=== PATIENT | male | born 1955 | race Caucasian/White ===

== ENCOUNTER → 2016-08-19 | Outpatient (CLI) | payer MEDICARE ==
--- NOTE | 2016-08-19 09:50 | REP ---
Clinical: Palpable mass; possible ventral hernia. Technique: Real time flores scale and color evaluation using linear high frequency and curved array transducer. Findings: Directed ultrasound examination in the midline periumbilical region demonstrates a 8.0 x 7.5 x 4.9 cm fat containing supraumbilical hernia with the peritoneal defect measuring approximately 32 mm diameter by Valsalva. Impression: 8 cm fat containing ventral hernia above the umbilicus. Signed by Bowen Tan MD 08/19/2016 09:42 A
== END ==
LOC: M RAD 08:32
PROVIDERS: ATTEND Nurse Practitioner Family
DX: K42.9 Umbilical hernia without obstruction or gangrene (principal)

== ENCOUNTER → 2016-10-07 | Outpatient (REF) | payer MEDICARE ==
[2016-10-07 13:57] LABS: ALBUMIN 3.4 GM/DL (3.2-5.2); ALBUMIN/GLOBULIN RATIO 1.03 (1.00-1.93); ALKALINE PHOSPHATASE 80 U/L (45-117); ALT/SGPT 24 U/L (12-78); ANION GAP 6 MEQ/L (8-16); AST/SGOT 15 U/L (15-37); BILIRUBIN,TOTAL 0.6 MG/DL (0.2-1.0); BLOOD UREA NITROGEN 28 MG/DL (7-18); CALCIUM LEVEL 9.2 MG/DL (8.5-10.1); CARBON DIOXIDE LEVEL 26 MEQ/L (21-32); CHLORIDE LEVEL 107 MEQ/L (98-107); CHOLESTEROL LEVEL 135 MG/DL (<200); CREATININE FOR GFR 1.12 MG/DL (0.70-1.30); GLOMERULAR FILTRATION RATE > 60.0 (>56); GLUCOSE, FASTING 166 MG/DL (70-105); POTASSIUM SERUM 4.4 MEQ/L (3.5-5.1); SODIUM LEVEL 139 MEQ/L (136-145); TOTAL PROTEIN 6.7 GM/DL (6.4-8.2); TRIGLYCERIDES LEVEL 256 MG/DL (<150)
== END ==
LOC: M LAB REF 12:57
PROVIDERS: ATTEND Nurse Practitioner Family
DX: E78.5 Hyperlipidemia, unspecified (principal); E55.9 Vitamin D deficiency, unspecified; E11.9 Type 2 diabetes mellitus without complications

== ENCOUNTER 2016-11-08 08:15 | Day surgery (SDC) | payer MEDICARE ==
[~2016-11-08] VITALS: Ht 172.7 cm; Wt 137.4 kg
[2016-11-08] VITALS (7 sets, daily range): BP systolic 122–138; BP diastolic 64–82
[~2016-11-08 08:15] MED LIST: ASPI1TAB PO; ATOR1TAB21 PO; DULO1CAP2 PO; GABA-282 PO; GLIP5TAB8 PO; INVO100T PO; ISOS60TA2 PO; LISI20TA3 PO; LR 1,000 ML IV SCH; METF10004 PO; METO25TA4 PO; PLAV1TAB2 PO; PREV1CAP PO; RANO5TAB PO; TOUJ1.2I SC
[2016-11-08] MEDS ORDERED: LR 1,000 ML IV ONE (09:00)
[2016-11-08] MEDS ORDERED: dexameTHASONE 4 MG/ML 1ML VIAL (J1100) As Ordered ONE (09:11)
[2016-11-08] MEDS ORDERED: ROCURONIUM BROMIDE 50 MG/5 ML VIAL/SYRINGE As Ordered ONE (09:11)
[2016-11-08] MEDS ORDERED: NEOSTIGMINE 1MG/ML 5 ML SYRINGE (J2710) As Ordered ONE (09:11)
[2016-11-08] MEDS ORDERED: PROPOFOL 200 MG/20 ML VIAL As Ordered ONE (09:11)
[2016-11-08] MEDS ORDERED: HYDROmorphone HCL 2 MG/ML 1ML VIAL (J1170) As Ordered ONE (09:11)
[2016-11-08] MEDS ORDERED: GLYCOPYRROLATE INJ 0.2 MG/ML 2 ML VIAL As Ordered ONE (09:11)
[2016-11-08] MEDS ORDERED: ONDANSETRON 4MG/2ML VIAL (J2405) As Ordered ONE (09:11)
[2016-11-08] MEDS ORDERED: fentaNYL 100 MCG/2 ML INJECTION (J3010) As Ordered ONE (09:12)
[2016-11-08] MEDS ORDERED: MIDAZOLAM INJ 2 MG/2 ML VIAL (J2250) As Ordered ONE (09:12)
[2016-11-08] MEDS ORDERED: LIDOCAINE 2% INJ 100 MG/5 ML SDV (FOR ANES.) As Ordered ONE (09:15)
[2016-11-08] MEDS ORDERED: BUPIVACAINE HCL 0.25% 30 ML VIAL As Ordered ONE (10:50)
[2016-11-08] MEDS ORDERED: LIDOCAINE 1% SDV INJ 30 ML VIAL As Ordered ONE (10:50)
[2016-11-08] MEDS ORDERED: SUGAMMADEX SODIUM 500 MG/5 ML VIAL (BRIDION) As Ordered ONE (13:29)
--- NOTE | 2016-11-08 14:04 | ROOPDOC ---
[facility] Report Of Operation Report of Operation DATE OF PROCEDURE: 11/08/16 PREPROCEDURE DIAGNOSES: epigastric ventral hernia morbid obesity bm1 of 47 POSTPROCEDURE DIAGNOSES: epigastric ventral hernia with incarcerated omentum morbid obesity PROCEDURE: Robotic Assisted Laparoscopic Ventral hernia Repair with mesh (IPOM 11.4 cm round mesh) SURGEON: Raiza Bailey MD CIGARETTE MACHINE FILLER: Jossy Mckoy NP ANESTHESIA:general ESTIMATED BLOOD LOSS: Approximately 20 mL. COMPLICATIONS: none REMARKS: 4x4 cms hernia defect, large midline diastases of his rectus muscles. PROCEDURE NOTE: 61 M morbidly obese with symptomatic epigastric ventral hernia DESCRIPTION OF PROCEDURE: Patient was given a dose of Ancef, 2 g IV preoperatively for wound prophylaxis. He was brought to the operating room and laid supine table, compression boots placed on his lower extremities were DVT prophylaxis. General endotracheal anesthesia was started. His abdomen was widely prepped and draped. A surgical timeout was performed prior to start of incision. Entry into the abdomen done through an incision at the left upper quadrant area. Veress needle was inserted on a controlled fashion. CO2 insufflation started her pressure of 15 mmHg. A separate 2 cm incision created more laterally at the left upper quadrant area. Under direct visualization of the laparoscope a 12 mm port was inserted into the abdomen. Insertion site was inspected for injury and none was found. Patient was placed on the right lateral decubitus to move the intestine away from the left side. Under direct vision, a second working port was placed along the same line at the left lower abdomen and in between the 2 ports an 8 mm camera port was placed. The da Huyen robot, was then maneuvered into position opposite the hernia defect. The trochars were docked to the robot arms. The 8 mm trocar over the left upper quadrant area was placed through the 12 mm working port. We used an 8.5 mm 30 laparoscope was used for the procedure. I then unscrubbed and took control of the camera and instruments at the surgeon's console. The incarcerated omentum was dissected away from the hernia. Patient has a very attenuated falciform ligament. After freeing up all the omental adhesions the hernia sac was dissected free from the subcutaneous tissue and preperitoneal space with the aid of my assistant chief train dispatcher pushing down on the hernia defect. Hemostasis was performed. The fascia was released from the surrounding subcutaneous space in the preperitoneal area to release tension and allow for closure of the defect. A 0 Stratafix (PDS, barbed suture) was used to close the defect. There were able to do so the abdominal pressure was lowered to 10 mmHg. I chose an 11.4 cm round ventral polypropylene mesh with echo. This was rolled tightly and placed into the abdomen. The tubing to inflate the balloon was retrieved at the center of the fascial closure. Once the balloon was inflated and the mesh positioned in place, the mesh was sutured circumferentially into the abdominal wall using a 2-0 Stratafix (monocryl equivalent, barbed). The mesh was adequately covering the fascial closure. We checked for hemostasis. The abdomen was then deflated I scrubbed back then. The 12 mm port site was closed using 0 Vicryl in a mattress fashion. All incision sites were closed with 4-0 Monocryl in a subcuticular fashion. Dermabond was then used for dressing. Patient was then promptly awakened, extubated and brought to the recovery room stable. OPERATIVE FINDINGS: 4 x 4 cms defect with incarcerated omentum released. Hernia sac removed. A 11.4 cm round ventralyte polypropylene mesh was sutured in place after primary closure of the midline defect as IPOM. GT BAILEY MD Nov 08, 2016 14:04
[2016-11-08] MEDS ORDERED: DEXTROSE 50% 50 ML SYRINGE IV PRN (14:15)
[2016-11-08] MEDS ORDERED: KETOROLAC 30 MG/ML VIAL (J1885) IV PRN (14:15)
[2016-11-08] MEDS ORDERED: ONDANSETRON 4MG/2ML VIAL (J2405) IV PRN ×2 (14:15→14:45)
[2016-11-08] MEDS ORDERED: GLUCAGON FOR INJ 1 MG VIAL (J1610) SC PRN (14:15)
[2016-11-08] MEDS ORDERED: ACETAMINOPHEN TAB 650MG DOSE (2X325MG) PO PRN (14:15)
[2016-11-08] MEDS ORDERED: GLUCOSE 4 GM CHEW TABLET PO PRN (14:15)
[2016-11-08] MEDS ORDERED: NORCO, ANEXSIA 5/325MG TABLET (HYDROcodone/ACETAMINOPHEN) PO PRN (14:15)
[2016-11-08] MEDS ORDERED: LR 1,000 ML IV SCH (14:45)
[2016-11-08] MEDS ORDERED: fentaNYL 100 MCG/2 ML INJECTION (J3010) IV PRN (14:45)
[2016-11-08] MEDS: NORCO, ANEXSIA 5/325MG TABLET (HYDROcodone/ACETAMINOPHEN) PO PRN ×2 (14:46→19:51)
[2016-11-08] MEDS: GABAPENTIN 300 MG CAP PO SCH ×2 (16:35→20:42)
[2016-11-08] MEDS: DULoxetine 30 MG CAP (CYMBALTA) PO SCH (16:35)
[2016-11-08] MEDS: HumaLOG INSULIN (NovoLOG) PER UNIT SC SCH (17:13)
[2016-11-08] MEDS: hydroCHLOROthiazide 12.5 MG CAPSULE PO SCH (17:20)
[2016-11-08] MEDS: LISINOPRIL 10 MG TAB PO SCH (17:22)
[2016-11-08] MEDS: METOPROLOL TART 25 MG TABLET PO SCH (20:44)
[2016-11-08] MEDS: SENOKOT S TAB PO SCH (20:45)
[2016-11-08] MEDS ORDERED: HumaLOG INSULIN (NovoLOG) PER UNIT SC SCH (21:00)
[2016-11-09] VITALS: BP 111/64
[2016-11-09 04:00] VITALS: BP 116/62
[2016-11-09 06:32] LABS: BASO % 0.2 % (0.0-1.0); EOS # 0.1 K/mm3 (0.0-0.50); EOS % 0.6 % (0.0-3.0); LARGE UNSTAINED CELL # 0.1 K/mm3 (0.0-0.4); LYMPH # 1.7 K/mm3 (1.5-4.5); LYMPH % 15.1 % (24.0-44.0); MEAN CORPUSCULAR HEMOGLOBIN 31.6 pg (27.0-33.0); MEAN CORPUSCULAR HGB CONC 34.3 g/dl (32.0-36.5); MEAN CORPUSCULAR VOLUME 92.2 fl (80.0-96.0); MONO # 0.7 K/mm3 (0.0-0.8); MONO % 7.2 % (0.0-5.0); NEUTROPHILS # 7.8 K/mm3 (1.8-7.7); NEUTROPHILS % 75.9 % (36.0-66.0); PLATELET COUNT, AUTOMATED 231 k/mm3 (150-450); RED CELL DISTRIBUTION WIDTH 13.8 % (11.5-14.5); WHITE BLOOD COUNT 10.3 K/mm3 (4.0-10.0)
[2016-11-09 06:57] LABS: ANION GAP 6 MEQ/L (8-16); BLOOD UREA NITROGEN 27 MG/DL (7-18); CARBON DIOXIDE LEVEL 29 MEQ/L (21-32); CHLORIDE LEVEL 98 MEQ/L (98-107); CREATININE FOR GFR 1.24 MG/DL (0.70-1.30); GLOMERULAR FILTRATION RATE > 60.0 (>49); GLUCOSE, FASTING 222 MG/DL (80-110); POTASSIUM SERUM 4.4 MEQ/L (3.5-5.1); SODIUM LEVEL 133 MEQ/L (136-145)
[2016-11-09 08:00] VITALS: BP 131/72
[2016-11-09] MEDS: HumaLOG INSULIN (NovoLOG) PER UNIT SC SCH (08:37)
[2016-11-09] MEDS: GABAPENTIN 300 MG CAP PO SCH (08:38)
[2016-11-09] MEDS: DULoxetine 30 MG CAP (CYMBALTA) PO SCH (08:38)
[2016-11-09] MEDS: SENOKOT S TAB PO SCH (08:38)
[2016-11-09] MEDS: hydroCHLOROthiazide 12.5 MG CAPSULE PO SCH (08:39)
[2016-11-09 08:40] VITALS: BP 116/62
[2016-11-09] MEDS: METOPROLOL TART 25 MG TABLET PO SCH (08:40)
[2016-11-09] MEDS: LISINOPRIL 10 MG TAB PO SCH (08:40)
[2016-11-09] MEDS ORDERED: ATORVASTATIN 20 MG TAB PO SCH (09:00)
[2016-11-09] MEDS ORDERED: ASPIRIN 81 MG ENTERIC TAB PO SCH (09:00)
[2016-11-09] MEDS ORDERED: ENOXAPARIN 40 MG/0.4 ML SYRINGE (J1650) SC SCH (09:00)
--- NOTE | 2016-11-09 09:10 | IPNPDOC ---
Subjective General Date/Time Seen The patient was seen on 11/09/16 at 09:07. Subject Chief Complaint/History The patient is a 61-year-old male admitted with a reason for visit of Ventral Hernia. Reports he is doing well. Pain minimal, ambulating, minimal flatus. Tolerating diet. No problems reported overnight. Current Medications Current Medications Current Medications Acetaminophen (Tylenol Tab) 650 mg Q4HP PRN PO MILD PAIN or TEMP > 101; Start 11/08/16 at 14:15; Stop 12/08/16 at 14:14 Acetaminophen/ Hydrocodone Bitart (Melber, Anexsia 5/325) 1 tab Q4HP PRN PO MODERATE PAIN (PS 5-7) Last administered on 11/08/16 19:51; Start 11/08/16 at 14:15; Stop 11/15/16 at 14:14 Acetaminophen/ Hydrocodone Bitart (Melber, Anexsia 5/325) 2 tab Q6HP PRN PO SEVERE PAIN (PS 8-10); Start 11/08/16 at 14:15; Stop 11/15/16 at 14:14 Aspirin (Ecotrin) 81 mg DAILY PO Last administered on 11/09/16 08:38; Start at 09:00; Stop 12/09/16 at 08:59 Atorvastatin Calcium (Lipitor) 20 mg DAILY PO Last administered on 11/09/16 08 :39; Start 11/09/16 at 09:00; Stop 12/09/16 at 08:59 Dextrose (Dextrose 50%) 25 ml ASDIRECTED PRN IV SEE LABEL COMMENTS; Start 11/08 at 14:15; Stop 12/08/16 at 14:14 Duloxetine HCl (Cymbalta) 30 mg DAILY PO Last administered on 11/09/16 08:38; Start 11/08/16 at 09:00; Stop 12/08/16 at 08:59 Enoxaparin Sodium (Lovenox) 40 mg DAILY SC Last administered on 11/09/16 08:39 ; Start 11/09/16 at 09:00; Stop 11/14/16 at 08:59 Fentanyl Citrate (Sublimaze) 25 mcg Q5MP PRN IV MODERATE PAIN (PS 4-7) Last administered on 11/08/16 14:45; Start 11/08/16 at 14:45; Stop 11/08/16 at 15:45 ; Status DC Gabapentin (Neurontin) 600 mg TID PO Last administered on 11/09/16 08:38; Start 11/08/16 at 16:00; Stop 12/08/16 at 15:59 Glucagon (Glucagon) 1 mg ASDIRECTED PRN SC SEE LABEL COMMENTS; Start 11/08/16 at 14:15; Stop 12/08/16 at 14:14 Glucose (Glucose) 16 GM ASDIRECTED PRN PO SEE LABEL COMMENTS; Start 11/08/16 at 14:15; Stop 12/08/16 at 14:14 Hydrochlorothiazide (Hydrodiuril) 12.5 mg DAILY PO Last administered on 08:39; Start 11/08/16 at 09:00; Stop 12/08/16 at 08:59 Insulin Human Lispro (HumaLOG INSULIN) SEE PROTOCOL TABLE AC SC Last administered on 11/09/16 08:37; Start 11/08/16 at 17:30; Stop 12/08/16 at 17:29 Insulin Human Lispro (HumaLOG INSULIN) SEE PROTOCOL TABLE QHS SC Last administered on 11/08/16 20:50; Start 11/08/16 at 21:00; Stop 12/08/16 at 20:59 Ketorolac Tromethamine (ToRADol) 30 mg Q6HP PRN IV MILD/MODERATE PAIN (PS 1-7) Last administered on 11/08/16 14:47; Start 11/08/16 at 14:15; Stop 11/13/16 at 14:14 Lactated Ringer's 1,000 ml @ 80 mls/hr [id number] IV ; Start 11/08/16 at 14:45; Stop 11/08/16 at 15:45; Status DC Lactated Ringer's 1,000 ml @ 100 mls/hr Q10H IV Last administered on 09:24; Start 11/08/16 at 08:15; Stop 11/08/16 at 14:17; Status DC Lisinopril (Prinivil) 10 mg DAILY PO Last administered on 11/09/16 08:40; Start 11/08/16 at 09:00; Stop 12/08/16 at 08:59 Metoprolol Tartrate (Lopressor) 25 mg BID PO Last administered on 11/09/16 08: 40; Start 11/08/16 at 21:00; Stop 12/08/16 at 20:59 Ondansetron HCl (ZOFRAN INJection) 4 mg Q4HP PRN IV NAUSEA OR VOMITING; Start 11/08/16 at 14:45; Stop 11/08/16 at 15:45; Status DC Ondansetron HCl (ZOFRAN INJection) 4 mg Q6HP PRN IV NAUSEA OR VOMITING; Start 11/08/16 at 14:15; Stop 12/08/16 at 14:14 Senna/Docusate Sodium (Senokot S) 1 tab BID PO Last administered on 11/09/16 08:38; Start 11/08/16 at 21:00; Stop 12/08/16 at 20:59 Allergies Coded Allergies: No Known Drug Allergy (Verified Allergy, Unknown, 11/08/16) Objective Physical Examination Examination GENERAL APPEARANCE:Patient seen, laying in bed, awake, alert, and oriented. Comfortable, in no acute distress. SKIN: Warm and moist. HEENT: Normocephalic, atraumatic. [place] palpebral conjunctiva, anicteric sclerae. Lips and mucosa appear moist. NECK: Supple, no thyromegaly. No obvious jugular venous distention. LUNGS: Clear to auscultation bilaterally. No wheezing appreciated. HEART: No chest wall abnormalities. Regular rate and rhythm with no murmurs appreciated. ABDOMEN: Abdomen is round, soft, minimally distended. port sites covered with dermabond, intact, clean. No hematoma, no seroma. hernia repair site minimally tender, no seroma.. EXTREMITIES: Extremities have no deformities. No edema identified. Vital Signs Vital Signs Date Time Temp Pulse Resp B/P (MAP) Pulse Ox O2 Delivery O2 Flow Rate FiO2 11/09/16 08:40 116/62 11/09/16 04:00 99.2 69 18 94 11/09/16 04:00 Nasal Cannula 2.0 I&Os I&O- Last 24 Hours up to 6 AM 11/09/16 05:59 Intake Total 3590 ml Output Total 1225 ml Balance 2365 ml Laboratory Data Labs 24H Laboratory Tests 2 11/08/16 14:28: Bedside Glucose (Misc Panel) 172H 11/08/16 16:37: Bedside Glucose (Misc Panel) 207H 11/08/16 20:40: Bedside Glucose (Misc Panel) 325H 11/09/16 05:44: White Blood Count 10.3H, Red Blood Count 4.93, Hemoglobin 15.6, Hematocrit 45.5 , Mean Corpuscular Volume 92.2, Mean Corpuscular Hemoglobin 31.6, Mean Corpuscular Hemoglobin Concent 34.3, Red Cell Distribution Width 13.8, Platelet Count 231, Neutrophils (%) (Auto) 75.9H, Lymphocytes (%) (Auto) 15.1L, Monocytes (%) (Auto) 7.2H, Eosinophils (%) (Auto) 0.6, Basophils (%) (Auto) 0.2 , Neutrophils # (Auto) 7.8H, Lymphocytes # (Auto) 1.7, Monocytes # (Auto) 0.7, Eosinophils # (Auto) 0.1, Basophils # (Auto) 0.0, Large Unclassified Cells % 1.0 , Large Unclassified Cells # 0.1, Anion Gap 6L, Glomerular Filtration Rate > 60.0, Blood Urea Nitrogen 27H, Creatinine 1.24, Sodium Level 133L, Potassium Level 4.4, Chloride Level 98, Carbon Dioxide Level 29, Calcium Level 9.0 CBC/BMP Laboratory Tests 11/09/16 05:44 Red Blood Count 4.93, Mean Corpuscular Volume 92.2, Mean Corpuscular Hemoglobin 31.6, Mean Corpuscular Hemoglobin Concent 34.3, Red Cell Distribution Width 13.8 , Neutrophils (%) (Auto) 75.9 H, Lymphocytes (%) (Auto) 15.1 L, Monocytes (%) ( Auto) 7.2 H, Eosinophils (%) (Auto) 0.6, Basophils (%) (Auto) 0.2, Neutrophils # (Auto) 7.8 H, Lymphocytes # (Auto) 1.7, Monocytes # (Auto) 0.7, Eosinophils # (Auto) 0.1, Basophils # (Auto) 0.0, Calcium Level 9.0 Impression POD1 Robotically assisted laparoscopic ventral (epigastric) hernia repair Stable. OK to D/C home. Patient has previous been given his postop norco from clinic. Follow up with me in 2 weeks. Plan / VTE VTE Prophylaxis Ordered?: Yes GT SCOTT MD Nov 09, 2016 09:10
== END 2016-11-09 10:45 | disposition home or self-care (01) ==
LOC: M SDC 08:15 → M PED 15:14 → M SDC 11-09 10:45
PROVIDERS: ATTEND Surgery
DX: K43.0 Incisional hernia with obstruction, without gangrene (principal); I10 Essential (primary) hypertension; E11.9 Type 2 diabetes mellitus without complications; I25.10 Atherosclerotic heart disease of native coronary artery without angina pectoris; E78.5 Hyperlipidemia, unspecified; E66.01 Morbid (severe) obesity due to excess calories; K21.9 Gastro-esophageal reflux disease without esophagitis; R06.02 Shortness of breath; R07.9 Chest pain, unspecified; R29.898 Other symptoms and signs involving the musculoskeletal system; R06.83 Snoring; G47.30 Sleep apnea, unspecified; Z79.899 Other long term (current) drug therapy; Z79.01 Long term (current) use of anticoagulants; Z79.82 Long term (current) use of aspirin; Z79.84 Long term (current) use of oral hypoglycemic drugs; Z79.4 Long term (current) use of insulin; Z87.891 Personal history of nicotine dependence; Z87.81 Personal history of (healed) traumatic fracture; Z95.5 Presence of coronary angioplasty implant and graft
CPT/HCPCS: 36415; 49653; 80048; 85025; 88302; C1781; J0690; J1170; J1650; J1885; J2250; J2405; J3010

== ENCOUNTER → 2017-01-07 | Outpatient (REF) | payer MEDICARE ==
[~2017-01-07] MED LIST changes: -LR 1,000 ML IV SCH
[2017-01-07 15:49] LABS: ANION GAP 13 MEQ/L (8-16); BLOOD UREA NITROGEN 24 MG/DL (7-18); CALCIUM LEVEL 9.3 MG/DL (8.8-10.2); CARBON DIOXIDE LEVEL 23 MEQ/L (21-32); CHLORIDE LEVEL 104 MEQ/L (98-107); CHOLESTEROL LEVEL 141 MG/DL (<200); CREATININE FOR GFR 1.03 MG/DL (0.70-1.30); GLOMERULAR FILTRATION RATE > 60.0 (>49); GLUCOSE, FASTING 208 MG/DL (80-110); POTASSIUM SERUM 4.3 MEQ/L (3.5-5.1); SODIUM LEVEL 140 MEQ/L (136-145); TRIGLYCERIDES LEVEL 196 MG/DL (<150)
== END ==
LOC: M LAB REF 13:21
PROVIDERS: ATTEND Nurse Practitioner Family
DX: E55.9 Vitamin D deficiency, unspecified (principal); E11.9 Type 2 diabetes mellitus without complications

== ENCOUNTER → 2017-04-08 | Outpatient (REF) | payer MEDICARE ==
[2017-04-08 16:27] LABS: ANION GAP 7 MEQ/L (8-16); BLOOD UREA NITROGEN 23 MG/DL (7-18); CALCIUM LEVEL 9.4 MG/DL (8.8-10.2); CARBON DIOXIDE LEVEL 28 MEQ/L (21-32); CHLORIDE LEVEL 104 MEQ/L (98-107); CREATININE FOR GFR 1.19 MG/DL (0.70-1.30); GLOMERULAR FILTRATION RATE > 60.0 (>49); GLUCOSE, FASTING 261 MG/DL (80-110); POTASSIUM SERUM 4.6 MEQ/L (3.5-5.1); SODIUM LEVEL 139 MEQ/L (136-145)
== END ==
LOC: M LAB REF 15:55
PROVIDERS: ATTEND Nurse Practitioner Family
DX: Z12.5 Encounter for screening for malignant neoplasm of prostate (principal); E11.9 Type 2 diabetes mellitus without complications
CPT/HCPCS: 80048; 83036; G0103

== ENCOUNTER → 2017-07-10 | Outpatient (REF) | payer MEDICARE ==
[2017-07-10 13:32] LABS: MALB URINE SIEMENS 41.5 MG/L
[2017-07-10 13:58] LABS: ESTIMATED AVERAGE GLUCOSE 171 MG/DL (60-110); HEMOGLOBIN A1c 7.6 %
== END ==
LOC: M LAB REF 12:11
DX: E10.9 Type 1 diabetes mellitus without complications (principal)
CPT/HCPCS: 83036

== ENCOUNTER → 2017-10-09 | Outpatient (CLI) | payer MEDICARE ==
[~2017-10-09] MED LIST changes: -ASPI1TAB PO; -ATOR1TAB21 PO; -DULO1CAP2 PO; -GABA-282 PO; +GASTROGRAFIN SOLUTION 30ML (Q9963) As Ordered; -GLIP5TAB8 PO; -INVO100T PO; -ISOS60TA2 PO; +ISOVUE-370 76% 100ML VIAL (Q9967) As Ordered; -LISI20TA3 PO; -METF10004 PO; -METO25TA4 PO; -PLAV1TAB2 PO; -PREV1CAP PO; -RANO5TAB PO; -TOUJ1.2I SC
[2017-10-09 16:50] LABS: CREATININE FOR GFR 1.23 MG/DL (0.70-1.30); GLOMERULAR FILTRATION RATE > 60.0 (>49)
[2017-10-09 16:50] LABS: BLOOD UREA NITROGEN 25 MG/DL (7-18)
== END ==
LOC: M RAD 15:54
DX: K43.9 Ventral hernia without obstruction or gangrene (principal)
CPT/HCPCS: Q9963

== ENCOUNTER 2017-10-13 20:04 | Emergency (ER) | payer MEDICARE ==
[2017-10-13 20:53] LABS: KETONE, URINE AUTO RFX NEGATIVE (NEGATIVE); NITRITE, URINE AUTO RFX NEGATIVE (NEGATIVE); RBC, URINE AUTO RFX 5 /HPF (0-3); SPECIFIC GRAVITY UR AUTO RFX 1.021 (1.002-1.035); SQUAM EPITHELIAL CELL UR AURFX 0 /HPF (0-6); WBC, URINE AUTO RFX 5 /HPF (0-3)
[2017-10-13 20:54] LABS: LEUKOCYTE ESTERASE UR AUTO RFX 2+ (NEGATIVE)
[2017-10-13] MEDS: CIPROFLOXACIN 500 MG TAB PO (23:15)
== END 2017-10-13 23:24 | disposition home or self-care (01) ==
LOC: M ED 20:04
DX: N30.00 Acute cystitis without hematuria (principal); N47.6 Balanoposthitis; I10 Essential (primary) hypertension; K21.9 Gastro-esophageal reflux disease without esophagitis; I25.2 Old myocardial infarction; Z95.5 Presence of coronary angioplasty implant and graft; Z87.891 Personal history of nicotine dependence; Z79.899 Other long term (current) drug therapy; Z79.01 Long term (current) use of anticoagulants; Z79.82 Long term (current) use of aspirin; Z79.4 Long term (current) use of insulin
CPT/HCPCS: 81001

== ENCOUNTER → 2017-10-21 | Outpatient (REF) | payer MEDICARE ==
[2017-10-21 13:50] LABS: ESTIMATED AVERAGE GLUCOSE 220 MG/DL (60-110); HEMOGLOBIN A1c 9.3 %
== END ==
LOC: M LAB REF 12:46
DX: E11.9 Type 2 diabetes mellitus without complications (principal)
CPT/HCPCS: 83036

== ENCOUNTER → 2017-10-23 | Outpatient (REF) | payer MEDICARE ==
[2017-10-23 14:11] LABS: APPEARANCE, URINE CLEAR (CLEAR); BACTERIA, URINE AUTO NEGATIVE (NEGATIVE); BILIRUBIN, URINE AUTO NEGATIVE (NEGATIVE); BLOOD, URINE BLOOD NEGATIVE (NEGATIVE); COLOR, URINE YELLOW (YELLOW); GLUCOSE, URINE (UA) AUTO 3+ mg/dL (NEGATIVE); KETONE, URINE AUTO NEGATIVE (NEGATIVE); LEUKOCYTE ESTERASE, URINE AUTO 1+ (NEGATIVE); NITRITE, URINE AUTO NEGATIVE (NEGATIVE); PROTEIN, URINE AUTO NEGATIVE (NEGATIVE); RBC, URINE AUTO 3 /HPF (0-3); SPECIFIC GRAVITY URINE AUTO 1.029 (1.002-1.035); SQUAMOUS EPITHELIAL CELL UR AU 0 /HPF (0-6); UROBILINOGEN, URINE AUTO 0.2 mg/dL (0.0-2.0); WBC, URINE AUTO 2 /HPF (0-3)
== END ==
LOC: M SMT 12:54
DX: R31.29 Other microscopic hematuria (principal)
CPT/HCPCS: 81001

== ENCOUNTER → 2017-11-20 | Outpatient (CLI) | payer MEDICARE ==
[2017-11-20 11:16] LABS: BASO # 0.1 10^3/uL (0.0-0.2); BASO % 0.6 % (0.0-1.0); EOS # 0.2 10^3/uL (0.0-0.50); EOS % 1.8 % (0.0-3.0); HEMOGLOBIN 16.9 g/dl (13.5-17.5); IMMATURE GRANULOCYTE % 0.7 % (0-3.0); LYMPH # 2.3 10^3/uL (1.5-4.5); LYMPH % 27.8 % (24.0-44.0); MEAN CORPUSCULAR HEMOGLOBIN 31.7 pg (27.0-33.0); MEAN CORPUSCULAR HGB CONC 35.2 g/dl (32.0-36.5); MEAN CORPUSCULAR VOLUME 90.1 fl (80.0-96.0); MONO # 0.6 10^3/uL (0.0-0.8); MONO % 7.8 % (0.0-5.0); NEUTROPHILS % 61.3 % (36.0-66.0); PLATELET COUNT, AUTOMATED 264 10^3/uL (150-450); RED BLOOD COUNT 5.33 10^6/uL (4.30-6.10); RED CELL DISTRIBUTION WIDTH 12.7 % (11.5-14.5); WHITE BLOOD COUNT 8.2 10^3/uL (4.0-10.0)
[2017-11-20 11:20] LABS: APPEARANCE, URINE CLEAR (CLEAR); BACTERIA, URINE AUTO NEGATIVE (NEGATIVE); BILIRUBIN, URINE AUTO NEGATIVE (NEGATIVE); BLOOD, URINE BLOOD NEGATIVE (NEGATIVE); COLOR, URINE YELLOW (YELLOW); GLUCOSE, URINE (UA) AUTO 3+ mg/dL (NEGATIVE); KETONE, URINE AUTO NEGATIVE (NEGATIVE); LEUKOCYTE ESTERASE, URINE AUTO TRACE (NEGATIVE); NITRITE, URINE AUTO NEGATIVE (NEGATIVE); PROTEIN, URINE AUTO NEGATIVE (NEGATIVE); RBC, URINE AUTO 2 /HPF (0-3); SPECIFIC GRAVITY URINE AUTO 1.026 (1.002-1.035); SQUAMOUS EPITHELIAL CELL UR AU 1 /HPF (0-6); UROBILINOGEN, URINE AUTO 0.2 mg/dL (0.0-2.0); WBC, URINE AUTO 1 /HPF (0-3)
[2017-11-20 11:27] LABS: INR 1.01; PROTHROMBIN TIME 13.4 SECONDS (12.1-14.4)
[2017-11-20 11:28] LABS: PARTIAL THROMBOPLASTIN TIME 28.1 SECONDS (25.4-37.6)
[2017-11-20 12:03] LABS: ALBUMIN/GLOBULIN RATIO 1.25 (1.00-1.93); ALKALINE PHOSPHATASE 105 U/L (45-117); ALT/SGPT 29 U/L (12-78); ANION GAP 12 MEQ/L (8-16); AST/SGOT 12 U/L (7-37); BLOOD UREA NITROGEN 25 MG/DL (7-18); CALCIUM LEVEL 9.5 MG/DL (8.8-10.2); CARBON DIOXIDE LEVEL 23 MEQ/L (21-32); CHLORIDE LEVEL 104 MEQ/L (98-107); CREATININE FOR GFR 1.27 MG/DL (0.70-1.30); GLOMERULAR FILTRATION RATE > 60.0 (>49); GLUCOSE, FASTING 242 MG/DL (70-100); POTASSIUM SERUM 4.9 MEQ/L (3.5-5.1); SODIUM LEVEL 139 MEQ/L (136-145); TOTAL PROTEIN 7.2 GM/DL (6.4-8.2)
== END ==
LOC: M LAB 10:22
DX: Z01.818 Encounter for other preprocedural examination (principal); N47.1 Phimosis; Z79.01 Long term (current) use of anticoagulants; Z79.899 Other long term (current) drug therapy
CPT/HCPCS: 71046

== ENCOUNTER 2017-12-05 07:59 | Emergency (ER) | payer MEDICARE ==
[2017-12-05] MEDS: NS 1,000 ML IV (08:46)
[2017-12-05] MEDS: HumuLIN R (REGULAR) INSULIN (NovoLIN R) **100U/ML** PER UNIT IV (08:47)
[2017-12-05 08:55] LABS: BASO # 0.1 10^3/uL (0.0-0.2); BASO % 0.7 % (0.0-1.0); EOS # 0.2 10^3/uL (0.0-0.50); EOS % 2.2 % (0.0-3.0); HEMOGLOBIN 15.7 g/dl (13.5-17.5); IMMATURE GRANULOCYTE % 1.6 % (0-3.0); LYMPH # 2.1 10^3/uL (1.5-4.5); LYMPH % 24.3 % (24.0-44.0); MEAN CORPUSCULAR HEMOGLOBIN 31.7 pg (27.0-33.0); MEAN CORPUSCULAR HGB CONC 35.7 g/dl (32.0-36.5); MEAN CORPUSCULAR VOLUME 88.7 fl (80.0-96.0); MONO # 0.7 10^3/uL (0.0-0.8); NEUTROPHILS # 5.5 10^3/uL (1.8-7.7); NEUTROPHILS % 63.2 % (36.0-66.0); PLATELET COUNT, AUTOMATED 242 10^3/uL (150-450); RED BLOOD COUNT 4.96 10^6/uL (4.30-6.10); WHITE BLOOD COUNT 8.8 10^3/uL (4.0-10.0)
[2017-12-05 09:00] LABS: VENOUS BASE EXCESS 0.5 (-2.0-2.0); VENOUS HCO3 25.6 MEQ/L (23.0-27.0); VENOUS O2 SATURATION 98.4 % (60.0-80.0); VENOUS PARTIAL PRESSURE O2 146.9 mmHg (30.0-50.0); VENOUS PH 7.393 UNITS (7.330-7.430); VENOUS STANDARD HCO3 24.9 MEQ/L; VENOUS TOTAL CO2 26.9 MEQ/L (24.0-28.0)
[2017-12-05] MEDS ORDERED: ASPIRIN 325 MG TAB PO (09:15)
[2017-12-05 09:16] LABS: ALBUMIN 3.6 GM/DL (3.2-5.2); ALKALINE PHOSPHATASE 112 U/L (45-117); ALT/SGPT 28 U/L (12-78); ANION GAP 7 MEQ/L (8-16); AST/SGOT 12 U/L (7-37); BILIRUBIN,DIRECT 0.3 MG/DL (0.0-0.2); BILIRUBIN,TOTAL 1.4 MG/DL (0.2-1.0); BLOOD UREA NITROGEN 28 MG/DL (7-18); CALCIUM LEVEL 9.3 MG/DL (8.8-10.2); CARBON DIOXIDE LEVEL 28 MEQ/L (21-32); CHLORIDE LEVEL 99 MEQ/L (98-107); CREATININE FOR GFR 1.27 MG/DL (0.70-1.30); GLOMERULAR FILTRATION RATE > 60.0 (>49); POTASSIUM SERUM 4.6 MEQ/L (3.5-5.1); SODIUM LEVEL 134 MEQ/L (136-145); TOTAL PROTEIN 7.6 GM/DL (6.4-8.2)
[2017-12-05 09:18] LABS: GLUCOSE, FASTING 432 MG/DL (70-100)
[2017-12-05] MEDS: metFORMIN (GLUCOPHAGE) 500 MG TAB PO (09:32)
[2017-12-05] MEDS: CLOPIDOGREL 75 MG TAB PO (09:32)
[2017-12-05 09:37] LABS: BEDSIDE GLUCOSE 348 MG/DL (80-115)
[2017-12-05] MEDS: glipiZIDE (GLUCOTROL) 5 MG TAB PO (09:40)
[2017-12-05] MEDS: ASPIRIN 81 MG CHEW TABLET PO (09:40)
[2017-12-05 10:17] LABS: ESTIMATED AVERAGE GLUCOSE 229 MG/DL (60-110); HEMOGLOBIN A1c 9.6 %
[2017-12-05 10:43] LABS: BEDSIDE GLUCOSE 417 MG/DL (80-115)
== END 2017-12-05 10:07 | disposition home or self-care (01) ==
LOC: M ED 07:59
DX: E11.65 Type 2 diabetes mellitus with hyperglycemia (principal)

== ENCOUNTER → 2017-12-05 | Day surgery (SDC) | payer MEDICARE ==
[~2017-12-05] MED LIST changes: +BACITRACIN OINT 30GM As Ordered; -GASTROGRAFIN SOLUTION 30ML (Q9963) As Ordered; -ISOVUE-370 76% 100ML VIAL (Q9967) As Ordered; +ceFAZolin SOD 1 GM in D5W MINI-BAG PLUS 50 ML IV
[2017-12-05 07:08] LABS: BEDSIDE GLUCOSE 467 MG/DL (80-115)
[2017-12-05 07:37] LABS: BEDSIDE GLUCOSE CONFIRMATION 455 MG/DL (LESS THAN 200)
== END | disposition home or self-care (01) ==
LOC: M SDC 05:44
DX: N47.1 Phimosis (principal); Z53.09 Procedure and treatment not carried out because of other contraindication; E11.65 Type 2 diabetes mellitus with hyperglycemia; Z79.01 Long term (current) use of anticoagulants; Z79.4 Long term (current) use of insulin; Z79.899 Other long term (current) drug therapy; Z79.82 Long term (current) use of aspirin; Z95.5 Presence of coronary angioplasty implant and graft
CPT/HCPCS: 82947

== ENCOUNTER 2017-12-10 19:07 | Emergency (ER) | payer MEDICARE ==
[2017-12-10] MEDS: NORCO 5/325MG TABLET (BULK FOR ED) PO (22:02)
== END 2017-12-10 22:05 | disposition home or self-care (01) ==
LOC: M ED 19:07
DX: S83.92XA Sprain of unspecified site of left knee, initial encounter (principal); X50.1XXA Overexertion from prolonged static or awkward postures, initial encounter; Y92.9 Unspecified place or not applicable; Y93.89 Activity, other specified; Y99.9 Unspecified external cause status; E11.9 Type 2 diabetes mellitus without complications; I10 Essential (primary) hypertension; Z87.891 Personal history of nicotine dependence
CPT/HCPCS: 73564

== ENCOUNTER 2017-12-14 18:38 | Emergency (ER) | payer SELFPAY, MEDICARE ==
[2017-12-14] MEDS: OXYCODONE/APAP 5MG/325MG(BULK FOR ED) 1 TABLET PO (19:51)
== END 2017-12-14 19:53 | disposition home or self-care (01) ==
LOC: M ED 18:38
DX: S86 Injury of muscle, fascia and tendon at lower leg level (principal); X50.1XXA Overexertion from prolonged static or awkward postures, initial encounter; Y92.098 Other place in other non-institutional residence as the place of occurrence of the external cause; I11.9 Hypertensive heart disease without heart failure; Z79.899 Other long term (current) drug therapy; Z79.02 Long term (current) use of antithrombotics/antiplatelets; Z79.4 Long term (current) use of insulin
CPT/HCPCS: 99284

== ENCOUNTER 2017-12-25 11:56 | Day surgery (SDC) | payer MEDICARE ==
[~2017-12-25 11:56] MED LIST changes: -BACITRACIN OINT 30GM As Ordered; +LR 1,000 ML IV; -ceFAZolin SOD 1 GM in D5W MINI-BAG PLUS 50 ML IV
[2017-12-25 12:58] LABS: BEDSIDE GLUCOSE 104 MG/DL (80-115)
[2017-12-25] MEDS ORDERED: MIDAZOLAM INJ 2 MG/2 ML VIAL (J2250) As Ordered ×2 (14:05)
[2017-12-25] MEDS ORDERED: fentaNYL 100 MCG/2 ML INJECTION (J3010) As Ordered ×4 (14:05→15:06)
[2017-12-25] MEDS ORDERED: LIDOCAINE 2% INJ 100 MG/5 ML SDV (FOR ANES.) As Ordered ×2 (14:06)
[2017-12-25] MEDS ORDERED: PROPOFOL 200 MG/20 ML VIAL As Ordered ×2 (14:06)
[2017-12-25] MEDS: ceFAZolin SOD 1 GM in D5W MINI-BAG PLUS 50 ML IV (14:38)
[2017-12-25] MEDS ORDERED: KETOROLAC 60 MG/2 ML VIAL (J1885) As Ordered ×2 (15:06)
[2017-12-25] MEDS ORDERED: dexameTHASONE 4 MG/ML 1ML VIAL (J1100) As Ordered ×2 (15:06)
[2017-12-25] MEDS ORDERED: ONDANSETRON 4MG/2ML VIAL (J2405) As Ordered ×2 (15:07)
[2017-12-25] MEDS: BACITRACIN OINT 30GM As Ordered ×2 (15:13)
[2017-12-25] MEDS ORDERED: PERCOCET 5MG/325MG TAB PO ×6 (16:15)
[2017-12-25] MEDS ORDERED: LR 1,000 ML IV ×2 (16:15)
[2017-12-25] MEDS ORDERED: ONDANSETRON 4MG/2ML VIAL (J2405) IV ×2 (16:15)
[2017-12-25] MEDS ORDERED: fentaNYL 100 MCG/2 ML INJECTION (J3010) IV ×2 (16:15)
== END 2017-12-25 17:40 | disposition home or self-care (01) ==
LOC: M SDC 11:56
DX: N47.1 Phimosis (principal); I10 Essential (primary) hypertension; E11.40 Type 2 diabetes mellitus with diabetic neuropathy, unspecified; I25.10 Atherosclerotic heart disease of native coronary artery without angina pectoris; E78.00 Pure hypercholesterolemia, unspecified; K21.9 Gastro-esophageal reflux disease without esophagitis; R06.83 Snoring; G47.33 Obstructive sleep apnea (adult) (pediatric); Z68.41 Body mass index [BMI] 40.0-44.9, adult; Z79.899 Other long term (current) drug therapy; Z79.4 Long term (current) use of insulin; Z79.01 Long term (current) use of anticoagulants; Z87.81 Personal history of (healed) traumatic fracture; Z95.5 Presence of coronary angioplasty implant and graft
CPT/HCPCS: 54161

== ENCOUNTER → 2018-01-01 | Outpatient (REF) | payer MEDICARE ==
[2018-01-01 15:39] LABS: ESTIMATED AVERAGE GLUCOSE 214 MG/DL (60-110); HEMOGLOBIN A1c 9.1 %
== END ==
LOC: M LAB REF 12:56
DX: E11.9 Type 2 diabetes mellitus without complications (principal)
CPT/HCPCS: 83036

== ENCOUNTER 2018-01-03 20:13 | Emergency (ER) | payer MEDICARE | END 2018-01-03 22:47 | disposition home or self-care (01) | LOC: M ED 20:13 | DX: N99.820 Postprocedural hemorrhage of a genitourinary system organ or structure following a genitourinary system procedure (principal); E11.9 Type 2 diabetes mellitus without complications; I10 Essential (primary) hypertension; K21.9 Gastro-esophageal reflux disease without esophagitis; G47.33 Obstructive sleep apnea (adult) (pediatric); Z95.5 Presence of coronary angioplasty implant and graft; Z79.899 Other long term (current) drug therapy; Z79.82 Long term (current) use of aspirin; Z79.4 Long term (current) use of insulin | CPT/HCPCS: 99283 ==

== ENCOUNTER → 2018-03-24 | Outpatient (REF) | payer MEDICARE ==
[2018-03-24 20:24] LABS: BASO # 0.1 10^3/uL (0.0-0.2); BASO % 0.5 % (0.0-1.0); EOS # 0.2 10^3/uL (0.0-0.50); EOS % 1.9 % (0.0-3.0); HEMATOCRIT 46.6 % (42.0-52.0); HEMOGLOBIN 15.6 g/dl (13.5-17.5); IMMATURE GRANULOCYTE % 0.5 % (0-3.0); LYMPH # 2.3 10^3/uL (1.5-4.5); MEAN CORPUSCULAR HEMOGLOBIN 30.4 pg (27.0-33.0); MEAN CORPUSCULAR HGB CONC 33.5 g/dl (32.0-36.5); MEAN CORPUSCULAR VOLUME 90.7 fl (80.0-96.0); MONO # 0.7 10^3/uL (0.0-0.8); MONO % 6.7 % (0.0-5.0); NEUTROPHILS # 6.8 10^3/uL (1.8-7.7); NEUTROPHILS % 67.4 % (36.0-66.0); PLATELET COUNT, AUTOMATED 306 10^3/uL (150-450); RED BLOOD COUNT 5.14 10^6/uL (4.30-6.10); RED CELL DISTRIBUTION WIDTH 13.3 % (11.5-14.5)
[2018-03-24 20:29] LABS: ALBUMIN 3.5 GM/DL (3.2-5.2); ALKALINE PHOSPHATASE 103 U/L (45-117); ALT/SGPT 23 U/L (12-78); ANION GAP 7 MEQ/L (8-16); AST/SGOT 13 U/L (7-37); BILIRUBIN,TOTAL 0.5 MG/DL (0.2-1.0); BLOOD UREA NITROGEN 26 MG/DL (7-18); CALCIUM LEVEL 9.4 MG/DL (8.8-10.2); CARBON DIOXIDE LEVEL 26 MEQ/L (21-32); CHLORIDE LEVEL 104 MEQ/L (98-107); CREATININE FOR GFR 1.37 MG/DL (0.70-1.30); GLOMERULAR FILTRATION RATE 56.2 (>49); GLUCOSE, FASTING 246 MG/DL (70-100); POTASSIUM SERUM 4.2 MEQ/L (3.5-5.1); SODIUM LEVEL 137 MEQ/L (136-145)
[2018-03-24 20:34] LABS: INR 0.98; PROTHROMBIN TIME 13.1 SECONDS (12.1-14.4)
[2018-03-24 20:43] LABS: ESTIMATED AVERAGE GLUCOSE 160 MG/DL (60-110); HEMOGLOBIN A1c 7.2 %
== END ==
LOC: M LAB REF 19:52
DX: Z01.812 Encounter for preprocedural laboratory examination (principal); E11.9 Type 2 diabetes mellitus without complications
CPT/HCPCS: 80053

== ENCOUNTER → 2018-06-17 | Outpatient (REF) | payer MEDICARE ==
[~2018-06-17] MED LIST changes: +ASPI1TAB PO; +ATOR1TAB21 PO; +CIPR-249 PO; +DULO1CAP2 PO; +GABA-843 PO; +GLIP5TAB8 PO; +HUMA100I3 SC; +INVO100T PO; +ISOS60TA2 PO; +LISI-542 PO; +LISI-672 PO; +LISI20TA3 PO; -LR 1,000 ML IV; +METF10004 PO; +METO25TA4 PO; +NORCOTAB PO; +PERC5TAB12 PO; +PLAV1TAB2 PO; +PREG50CA PO; +PREV1CAP PO; +RANO5TAB PO; +TOUJ1.2I SC; +VITA200015 PO
[2018-06-17 18:26] LABS: BASO # 0.1 10^3/uL (0.0-0.2); BASO % 0.5 % (0.0-1.0); EOS # 0.2 10^3/uL (0.0-0.50); EOS % 1.7 % (0.0-3.0); HEMATOCRIT 48.5 % (42.0-52.0); HEMOGLOBIN 16.2 g/dl (13.5-17.5); LYMPH # 2.4 10^3/uL (1.5-4.5); LYMPH % 23.2 % (24.0-44.0); MEAN CORPUSCULAR HEMOGLOBIN 30.1 pg (27.0-33.0); MEAN CORPUSCULAR HGB CONC 33.4 g/dl (32.0-36.5); MONO # 0.8 10^3/uL (0.0-0.8); MONO % 7.8 % (0.0-5.0); NEUTROPHILS # 6.8 10^3/uL (1.8-7.7); PLATELET COUNT, AUTOMATED 290 10^3/uL (150-450); RED BLOOD COUNT 5.39 10^6/uL (4.30-6.10); WHITE BLOOD COUNT 10.3 10^3/uL (4.0-10.0)
[2018-06-17 18:40] LABS: ALBUMIN 3.8 GM/DL (3.2-5.2); ALT/SGPT 24 U/L (12-78); BLOOD UREA NITROGEN 24 MG/DL (7-18); CALCIUM LEVEL 9.6 MG/DL (8.8-10.2); CARBON DIOXIDE LEVEL 27 MEQ/L (21-32); CHLORIDE LEVEL 102 MEQ/L (98-107); CHOLESTEROL LEVEL 146 MG/DL (<200); CHOLESTEROL RISK RATIO 3.041 (<5); CREATININE FOR GFR 1.22 MG/DL (0.70-1.30); GLOMERULAR FILTRATION RATE > 60.0 (>49); GLUCOSE, FASTING 165 MG/DL (70-100); HDL CHOLESTEROL 48 MG/DL (>40); LDL CHOLESTEROL 70 MG/DL (<100); NON-HDL-C 98 MG/DL; POTASSIUM SERUM 5.3 MEQ/L (3.5-5.1); SODIUM LEVEL 136 MEQ/L (136-145); TOTAL 25(OH) VITAMIN D 38.1 NG/ML (30.0-100.0); TOTAL PROTEIN 7.5 GM/DL (6.4-8.2); TRIGLYCERIDES LEVEL 140 MG/DL (<150)
[2018-06-17 18:43] LABS: HEMOGLOBIN A1c 8.2 %
== END ==
LOC: M LAB REF 16:42
PROVIDERS: ATTEND Nurse Practitioner Family
DX: I10 Essential (primary) hypertension (principal); E78.5 Hyperlipidemia, unspecified; E11.9 Type 2 diabetes mellitus without complications

== ENCOUNTER → 2018-09-16 | Outpatient (REF) | payer MEDICARE ==
[~2018-09-16] MED LIST changes: -ASPI1TAB PO; +ASPI81TA26 PO; +HYDR-3715 PO; -NORCOTAB PO
[2018-09-16 17:00] LABS: ALBUMIN 3.9 GM/DL (3.2-5.2); ALT/SGPT 25 U/L (12-78); BILIRUBIN,TOTAL 0.8 MG/DL (0.2-1.0); BLOOD UREA NITROGEN 27 MG/DL (7-18); CALCIUM LEVEL 9.3 MG/DL (8.8-10.2); CARBON DIOXIDE LEVEL 25 MEQ/L (21-32); CHLORIDE LEVEL 107 MEQ/L (98-107); CHOLESTEROL LEVEL 179 MG/DL (<200); CHOLESTEROL RISK RATIO 4.589 (<5); CREATININE FOR GFR 1.25 MG/DL (0.70-1.30); GLOMERULAR FILTRATION RATE > 60.0 (>49); GLUCOSE, FASTING 203 MG/DL (70-100); HDL CHOLESTEROL 39 MG/DL (>40); LDL CHOLESTEROL 90 MG/DL (<100); NON-HDL-C 140 MG/DL; POTASSIUM SERUM 4.8 MEQ/L (3.5-5.1); SODIUM LEVEL 138 MEQ/L (136-145); TOTAL PROTEIN 7.3 GM/DL (6.4-8.2); TRIGLYCERIDES LEVEL 250 MG/DL (<150)
[2018-09-16 17:03] LABS: BASO # 0.1 10^3/uL (0.0-0.2); BASO % 0.5 % (0.0-1.0); EOS # 0.2 10^3/uL (0.0-0.50); EOS % 1.9 % (0.0-3.0); HEMATOCRIT 49.8 % (42.0-52.0); HEMOGLOBIN 16.7 g/dl (13.5-17.5); LYMPH # 2.1 10^3/uL (1.5-4.5); LYMPH % 21.8 % (24.0-44.0); MEAN CORPUSCULAR HGB CONC 33.5 g/dl (32.0-36.5); MEAN CORPUSCULAR VOLUME 92.6 fl (80.0-96.0); MONO # 0.6 10^3/uL (0.0-0.8); MONO % 6.5 % (0.0-5.0); NEUTROPHILS # 6.6 10^3/uL (1.8-7.7); NEUTROPHILS % 68.9 % (36.0-66.0); PLATELET COUNT, AUTOMATED 260 10^3/uL (150-450); RED BLOOD COUNT 5.38 10^6/uL (4.30-6.10); WHITE BLOOD COUNT 9.5 10^3/uL (4.0-10.0)
[2018-09-16 17:12] LABS: HEMOGLOBIN A1c 8.2 %
== END ==
LOC: M LAB REF 16:25
PROVIDERS: ATTEND Nurse Practitioner Family
DX: I10 Essential (primary) hypertension (principal); E78.5 Hyperlipidemia, unspecified; E11.9 Type 2 diabetes mellitus without complications

== ENCOUNTER → 2018-09-23 | Outpatient (CLI) | payer MEDICARE ==
[~2018-09-23] MED LIST changes: +PREG100CA PO
[2018-09-23 12:02] LABS: HEMATOCRIT 49.1 % (42.0-52.0); HEMOGLOBIN 16.8 g/dl (13.5-17.5); MEAN CORPUSCULAR HEMOGLOBIN 31.4 pg (27.0-33.0); MEAN CORPUSCULAR HGB CONC 34.2 g/dl (32.0-36.5); MEAN CORPUSCULAR VOLUME 91.8 fl (80.0-96.0); PLATELET COUNT, AUTOMATED 256 10^3/uL (150-450); RED BLOOD COUNT 5.35 10^6/uL (4.30-6.10); WHITE BLOOD COUNT 8.7 10^3/uL (4.0-10.0)
[2018-09-23 12:11] LABS: INR 0.93; PROTHROMBIN TIME 12.6 SECONDS (12.1-14.4)
[2018-09-23 12:31] LABS: ERYTHROCYTE SEDIMENTATION RATE 2 mm/hr (0-20)
[2018-09-23 12:32] LABS: ALBUMIN 3.5 GM/DL (3.2-5.2); ALT/SGPT 24 U/L (12-78); BLOOD UREA NITROGEN 26 MG/DL (7-18); CALCIUM LEVEL 9.4 MG/DL (8.8-10.2); CARBON DIOXIDE LEVEL 24 MEQ/L (21-32); CHLORIDE LEVEL 104 MEQ/L (98-107); CREATININE FOR GFR 1.26 MG/DL (0.70-1.30); GLOMERULAR FILTRATION RATE > 60.0 (>49); GLUCOSE, FASTING 227 MG/DL (70-100); POTASSIUM SERUM 4.9 MEQ/L (3.5-5.1); SODIUM LEVEL 135 MEQ/L (136-145); TOTAL PROTEIN 7.2 GM/DL (6.4-8.2)
--- NOTE | 2018-09-23 12:44 | REP ---
Chest two views HISTORY: Preop Comparison: 11/20/2017 The lungs are clear. The heart is normal in size. The pulmonary vasculature is normal in appearance. The bony structure is intact. IMPRESSION: No acute disease. Electronically Signed by Donnie Pak MD 09/23/2018 12:35 P
--- NOTE | 2018-09-23 19:54 | ECGEPIP ---
Stationary ECG Study [facility] Test Date: 2018-09-23 Pat Name: BERNARDO ARGUETA Department: Room: - Gender: M Certified Diabetes Educator: : [id number] Requested By: Brandon Saleh Order Number: [id number] Reading MD: Shane Connell Measurements Intervals [place] Rate: 71 P: 58 VA: 190 QRS: 28 QRSD: 94 T: 57 QT: 355 QTc: 387 Interpretive Statements Normal sinus rhythm Normal EKG No significant change when compared to prior tracing of 09/06/2015 Electronically Signed On 09-23-2018 19:53:41 EDT by Shane Connell
== END ==
LOC: M RAD 11:05
PROVIDERS: ATTEND Orthopaedic Surgery
DX: Z01.818 Encounter for other preprocedural examination (principal); M17.12 Unilateral primary osteoarthritis, left knee

== ENCOUNTER 2018-10-06 07:51 | Inpatient (IN) | payer MEDICARE ==
--- NOTE | 2018-10-01 14:27 | HPE ---
DATE OF ADMISSION: 10/06/2018 HISTORY OF PRESENT ILLNESS: This is a pleasant male with continuing symptomatic left knee osteoarthritis. He has consented for a left total knee arthroplasty per Dr. Brandon Saleh. Medical optimization per Vashti SCHNEIDER. ALLERGIES: None known to drugs. MEDICAL PROBLEM LIST: 1. Symptomatic left knee osteoarthritis. 2. Obesity. 3. Type 2 diabetes. 4. Hypertension. 5. Heart disease. 6. Hyperlipidemia. 7. Sleep apnea. MEDICATIONS: - Humalog quick pen 100/mL subcutaneous solution pen injector - Vitamin D3 2000 unit oral capsule - Cymbalta 60 mg oral capsule delayed release - OneTouch Ultra In Vitro Blue Strip - ShutterCalTouch Delica Lancets Fine - ShutterCalTouch Ultra Link with device kit - glipizide 5 mg oral tablet - Lyrica 100 mg oral capsule which the patient states recently was increased by his primary care provider - Ranexa 500 mg oral tablet extended release 12-hour - atorvastatin calcium 200 mg oral tablet - Toujeo Solostar 300 unit/mL subcutaneous solution pen-injector - insulin syringe 31-gauge x 5/16-inch 1 mm - Pen needles 51/6 30-gauge x 8 mm - Blood glucose test in vitro strip. - lansoprazole 30 mg oral capsule delayed release - lisinopril 5 mg oral tablet - Invokana 300 mg oral tablet - metoprolol tartrate 25 mg oral tablet - metformin HCl 500 mg oral tablet - aspirin 81 mg oral tablet delayed release - Plavix 75 mg oral tablet SURGICAL HISTORY: Hernia surgery October of last year. Appendectomy. Stents in heart 2012. Circumcision. FAMILY HISTORY: Diabetes on mother's side and cancer on father's side. SOCIAL HISTORY: The patient denies smoking. Denies excessive alcohol or illicit drugs. REVIEW OF SYSTEMS: Denies chest pain, shortness of breath, dyspnea on exertion, fever, chills, malaise. Does admit to some recent increased back pain without injury, states it tolerable, but he is just a little bit sore. He just wants to make sure that this pain would be covered postoperatively. PHYSICAL EXAMINATION: Height 68 inches, weight 281.4, temperature 96.6. Blood pressure (BP) 125/70. Respirations 17. Pulse 83. This is a pleasant well-developed, well-nourished 62-year-old male in no acute distress. Alert and oriented times three. Mood and affect are appropriate. Ambulates slow, steady, favoring of the right lower extremity. Antalgia about the left knee. Bilateral lower extremities benign, noninfectious looking, skin intact. Left knee with some fullness noted. Old healed portal sites. Benign, noninfectious otherwise in appearance. No evidence of deep vein thrombosis (DVT) or compartment syndrome in the bilateral lower extremities. Knee range of motion is near 0, flexion beyond 90, crepitance through range of motion. No popliteal fossa mass or pain. Left hip range of motion is not grossly limited or irritable through internal and external range of motion. Bowels soft, nontender times four. Chest rises symmetrically. Negative murmurs, gallops, rubs. Neck supple. Negative jugular venous distention (JVD) or bruits. Lungs clear. Normocephalic. LABS: Were reviewed as acquired on 09/16/2018. Neutrophil percentage was 68.9%. [place] percentage 6.51. Lymph percentage slightly low at 21.8. Glucose fasting was elevated at 203, BUN 27, GFR greater than 60, anion gap was 6, triglycerides 250, HDL 39. Chest x-ray dated 09/23/2018 at [facility] with no acute disease read by Dr. Pak. Echocardiogram, result per [facility] provider, Dr. Frank Gibson, with no significant valvular disease, left ventricular systolic function normal, left ventricular diastolic function shows abnormal relaxation, hypertensive heart disease - mild, estimated PA systolic pressure normal, no intracardiac masses, vegetations or pericardial effusion. Subacute bacterial endocarditis (SBE) prophylaxis was not recommended. The patient was told he could proceed with this surgery at low cardiovascular risk. EKG was read normal sinus rhythm, normal EKG. IMPRESSION: 1. Left knee symptomatic osteoarthritis. 2. The patient consented for left total knee arthroplasty per Dr. Brandon Saleh. 3. Medical optimization per JENNIE Wallace. 4. On-call to OR 2 grams IV Kefzol in OR. 5. SCD and TEDS in OR. MTDD
[2018-10-06] VITALS (7 sets, daily range): BP systolic 113–147; BP diastolic 63–84
[~2018-10-06] VITALS: Ht 172.7 cm; Wt 124.6 kg
[~2018-10-06 07:51] MED LIST changes: +LR 1,000 ML IV ONE; +ceFAZolin SOD 1 GM in D5W MINI-BAG PLUS 50 ML IV ONE
[2018-10-06] MEDS ORDERED: VANCOMYCIN 1000 MG/20 ML VIAL (J3370) As Ordered ONE (08:25)
--- NOTE | 2018-10-06 08:34 | IPN ---
DATE: 10/06/2018 The patient wishes to proceed with a left total knee arthroplasty. He was seen and examined. Left knee was initialed. He understands the nature of this, the risks of bleeding, infection, damage to nerves, vessels, persistent pain, wear loosening, medical problems, , among others, some risk of blood clots.
[2018-10-06] MEDS ORDERED: VANCOMYCIN HCL 1,000 MG, VIAL MATE ADAPTER 1 EACH in D5W 250 ML IV ONE ×2 (08:45→22:00)
[2018-10-06] MEDS ORDERED: TRANEXAMIC ACID 100 MG/ML 10ML VIAL As Ordered ONE (09:00)
[2018-10-06] MEDS ORDERED: ceFAZolin 1GM INJ (J0690 PER 500MG) As Ordered ONE (09:00)
[2018-10-06] MEDS ORDERED: EPINEPHrine INJ 1 MG/ML 1ML AMP As Ordered ONE (09:00)
[2018-10-06] MEDS ORDERED: BUPIVACAINE LIPOSOME/PF 1.3% 20ML VIAL (13.3MG/ML)(EXPAREL)(C9290 PER1MG) As Ordered ONE (09:01)
[2018-10-06] MEDS ORDERED: fentaNYL 100 MCG/2 ML INJECTION (J3010) As Ordered ONE ×2 (09:07→09:54)
[2018-10-06] MEDS ORDERED: MIDAZOLAM INJ 2 MG/2 ML VIAL (J2250) As Ordered ONE ×2 (09:07→09:54)
[2018-10-06] MEDS ORDERED: BUPIVACAINE HCL 0.25% 30 ML VIAL As Ordered ONE (09:10)
[2018-10-06] MEDS ORDERED: BUPIVACAINE HCL 0.25% 10 ML VIAL As Ordered ONE (09:10)
[2018-10-06] MEDS ORDERED: HumaLOG INSULIN (NovoLOG) PER UNIT As Ordered ONE (09:15)
[2018-10-06] MEDS ORDERED: HumaLOG INSULIN (NovoLOG) PER UNIT SC ONE ×2 (09:45→10:45)
[2018-10-06] MEDS ORDERED: LIDOCAINE 2% INJ 100 MG/5 ML SDV (FOR ANES.) As Ordered ONE (09:51)
[2018-10-06] MEDS ORDERED: PROPOFOL 500 MG/50 ML VIAL As Ordered ONE (10:00)
[2018-10-06] MEDS ORDERED: MIDAZOLAM INJ 2 MG/2 ML VIAL (J2250) IV ONE (10:30)
[2018-10-06] MEDS ORDERED: fentaNYL 100 MCG/2 ML INJECTION (J3010) IV ONE (10:30)
[2018-10-06] MEDS ORDERED: ONDANSETRON 4MG/2ML VIAL (J2405) As Ordered ONE (10:52)
[2018-10-06] MEDS ORDERED: KETOROLAC 60 MG/2 ML VIAL (J1885) As Ordered ONE (10:52)
[2018-10-06] MEDS ORDERED: dexameTHASONE 4 MG/ML 1ML VIAL (J1100) As Ordered ONE (10:52)
[2018-10-06] MEDS ORDERED: BUPIVACAINE/DEXTROSE 0.75% 2 ML AMP As Ordered ONE (10:52)
[2018-10-06] MEDS ORDERED: PROPOFOL 200 MG/20 ML VIAL As Ordered ONE (10:52)
[2018-10-06] MEDS ORDERED: PHENYLephrine HCL 500 MCG/5 ML (100MCG/ML) SYRINGE (J2370) As Ordered ONE (10:55)
[2018-10-06] MEDS ORDERED: ePHEDrine SULFATE 25 MG/5 ML(5MG/ML) SYRINGE As Ordered ONE (10:55)
[2018-10-06] MEDS ORDERED: HumuLIN R (REGULAR) INSULIN (NovoLIN R) **100U/ML** PER UNIT As Ordered ONE (11:20)
[2018-10-06] MEDS ORDERED: fentaNYL 100 MCG/2 ML INJECTION (J3010) IV PRN (12:30)
[2018-10-06] MEDS ORDERED: PROMETHAZINE INJ 25 MG/ML VIAL (J2550) IV PRN (12:30)
[2018-10-06] MEDS ORDERED: oxyCODONE 5MG TAB PO PRN (12:30)
[2018-10-06] MEDS ORDERED: METOCLOPRAMIDE INJ 10MG/2ML VIAL (J2765) IV PRN (12:30)
[2018-10-06] MEDS: LR 1,000 ML IV SCH (12:30)
[2018-10-06] MEDS ORDERED: MORPHINE 4 MG/ML 1ML VIAL/SYRINGE (J2270) IV PRN ×2 (12:30)
[2018-10-06] MEDS ORDERED: LR 1,000 ML IV SCH (12:30)
[2018-10-06] MEDS ORDERED: LIDOCAINE 1% MDV 20ML VIAL ONE (12:42)
[2018-10-06] MEDS ORDERED: dexameTHASONE 10 MG/1 ML VIAL PRES.FREE (J1100) ONE (12:42)
[2018-10-06] MEDS ORDERED: FLEET ENEMA PR PRN (12:45)
[2018-10-06] MEDS ORDERED: ACETAMINOPHEN TAB 650MG DOSE (2X325MG) PO PRN (12:45)
[2018-10-06] MEDS ORDERED: ONDANSETRON 4MG/2ML VIAL (J2405) IV PRN (12:45)
--- NOTE | 2018-10-06 15:48 | REP ---
Left knee: Two views obtained portably. History: Postop. Findings: Portably obtained AP and lateral views of the left knee demonstrate left knee arthroplasty components in good position. Prepatellar soft-tissue swelling and soft tissue emphysema is seen. Anterior skin chasity are noted. Electronically Signed by Honorio Kumar MD 10/06/2018 05:26 P
--- NOTE | 2018-10-06 15:48 | CR.PDOC ---
General Date of Consultation: October 06, 2018 Referring Provider: A Consultation REASON FOR CONSULTATION/CHIEF COMPLAINT: Medical consult s/p L. Total knee arthroplasty HISTORY OF PRESENT ILLNESS: Patient is 62-year-old male with past medical history of left knee osteoarthritis/meniscal tear 3 months prior status post re pair, diabetes mellitus, hypertension, CAD, HLD, IAN not on CPAP presented today for elective left total knee arthroplasty. Patient has had severe osteoarthritis of the left knee in addition to a meniscal tear 3 months prior and underwent repair with Dr. Saleh but still has significant pain therefore came in today for left TKA. Patient reported feeling better today postop denies any discomfort or pain anywhere. He has not had physical therapy since last surgery 3 months prior because of costs going as outpatient 3 times per week. Currently denies any complaints. PAST MEDICAL HISTORY: Refer to [facility] PAST SURGICAL HISTORY: Left knee meniscal tear repair Appendectomy Hernia repair October 2017 Cardiac stent placement 2012 SOCIAL HISTORY: Denies tobacco, alcohol or illicit drug use. FAMILY HISTORY: DM mother side Cancer father side ALLERGIES: Please see below. REVIEW OF SYSTEMS: 10 point review of system negative except as stated in HPI HOME MEDICATIONS: Please see below. PHYSICAL EXAMINATION: General: No acute distress, Alert Eyes: Normal sclera, EOMI, VARSHA HENT: Atraumatic, neck supple, moist mucous membranes Cardiovascular: Normal rate, normal rhythm. No murmurs appreciated. Pulmonary: Clear to auscultation b/l, no wheezing GI: Soft, nontender, nondistended Skin: Warm and dry Neuro: CN grossly intact. No focal deficits. Strengths equal b/l. Psych: oriented x 3 LABORATORY DATA: See below. MICROBIOLOGY: Please see below. ASSESSMENT AND PLAN: 1. L. knee OA/meniscal tear - Persistent pain s/p surgical intervention 3 months prior now improved s/p L. TKA 10/06. - Pain control. - PT/OT. - Xarelto started per Ortho. Cautious for bleed as patient already on ASA and Plavix. - Need assessment for Rehab? if inpatient is a possibility and assess cost. 2. DM - Monitor BS. On lantus 60 BID. Will start on Levemir 60 units BID + ISS. - Diabetic diet. 3. HTN - Monitor BP. - Resume home med. 4. CAD - Resume ASA/Plavix. - No chest pain. Stable. 5. HLD - c/w statin Code status: Full Code Dispo: PT assessment. Inpatient vs. outpatient Rehab. Vital Signs/I&O Vital Signs Date Time Temp Pulse Resp B/P (MAP) Pulse Ox O2 Delivery O2 Flow Rate FiO2 10/06/18 14:30 97.7 82 26 119/65 (83) 95 10/06/18 12:45 2 Laboratory Data Labs 24H Laboratory Tests 2 10/06/18 09:33: Bedside Glucose (Misc Panel) 245H 10/06/18 09:54: Bedside Glucose (Misc Panel) 238H 10/06/18 11:16: Bedside Glucose (Misc Panel) 204H 10/06/18 11:56: Bedside Glucose (Misc Panel) 114 10/06/18 12:18: Bedside Glucose (Misc Panel) 90 CBC/BMP Laboratory Tests 10/06/18 08:09 Allergies Coded Allergies: No Known Allergies (Unverified , 09/24/18) Home Medications Scheduled Aspirin (Aspirin EC) 81 Mg Tab, 81 MG PO DAILY, #30 (Reported) Atorvastatin Calcium (Atorvastatin Calcium) 20 Mg Tab, 20 MG PO DAILY, (Reported) Canagliflozin (Invokana) 100 Mg Tab, 300 MG PO DAILY, (Reported) Cholecalciferol (Vitamin D3) (Vitamin D3) 2,000 Unit Tab, 1 TAB PO DAILY for 30 Days, #30 (Reported) Clopidogrel Bisulfate (Plavix) 75 Mg Tab, 75 MG PO DAILY, (Reported) Duloxetine Hcl (Duloxetine HCl) 30 Mg Cap, 60 MG PO DAILY, (Reported) Insulin Glargine,Hum.rec.anlog (Toujeo Solostar) 300 Unit/Ml Inj, 60 UNIT SC BID, (Reported) Insulin Lispro (Humalog) 100 Unit/Ml Inj, 12 UNITS SC QHS, (Reported) Lansoprazole (Prevacid) 30 Mg Cap, 30 MG PO DAILY, (Reported) Lisinopril (Lisinopril) 5 Mg Tab, 5 MG PO DAILY, (Reported) Metformin HCl (Metformin HCl) 1,000 Mg Tab, 500 MG PO BID, (Reported) Metoprolol Tartrate (Metoprolol Tartrate) 25 Mg Tab, 25 MG PO BID, (Reported) Pregabalin (Lyrica) 100 Mg Capsule, 100 MG PO TID, (Reported) Ranolazine (Ranexa) 500 Mg Bhanu, 500 MG PO BID, (Reported) ANALISA MANSFIELD MD October 06, 2018 15:48
[2018-10-06] MEDS ORDERED: GLUCAGON FOR INJ 1 MG VIAL (J1610) SC PRN (16:15)
[2018-10-06] MEDS ORDERED: GLUCOSE 4 GM CHEW TABLET PO PRN (16:15)
[2018-10-06] MEDS ORDERED: DEXTROSE 50% 50 ML SYRINGE IV PRN (16:15)
--- NOTE | 2018-10-06 16:19 | RO ---
DATE OF PROCEDURE: 10/06/2018 PREOPERATIVE DIAGNOSIS: Left knee osteoarthritis. POSTOPERATIVE DIAGNOSIS: Left knee osteoarthritis. PROCEDURE: Left total knee arthroplasty using an Attune rotating platform cruciate retaining size 6 femur, size 6 tibia, 6 polyethylene, 35 patellar button. SURGEON: Brandon Saleh MD MOBILE LOUNGE DRIVER: LUIGI Womack ANESTHESIA: Spinal. ESTIMATED BLOOD LOSS: Less than 50. COMPLICATIONS: None. INDICATIONS: This is a 62-year-old gentleman who has had some persistent worsening left knee pain. X-rays were notable for severe arthritis and he wished to go ahead with a knee replacement. He had varus alignment and some collapse of the medial compartment. I did not feel he was a candidate for an unicompartmental knee and he is also morbidly obese. DESCRIPTION OF PROCEDURE: The patient was taken to the operating room and placed in supine position. After spinal anesthesia was induced, the left lower extremity was prepped and draped in usual sterile fashion. A time-out was performed. A longitudinal incision was made after tourniquet was inflated, and then performed a medial parapatellar arthrotomy per routine. I everted the patella. I used the canal initiating reamer on the femoral side, followed by the intramedullary guide set at 5 degrees of valgus 9 mm cut. This was pinned in place and the distal femoral cut was made while I protected soft tissues. This bone was removed. I sized the femur to be a 6, and the cutting block was then placed. The remaining cuts were made protecting soft tissues. I then freed up the posterior cruciate ligament (PCL) a little bit and placed the tibial alignment guide and secured this in place the appropriate amount of valgus and posterior slope, and then ended up taking 2 mm off the low side which was probably 10 mm off the high side. This cut was made. It was very sclerotic medially, so I was careful to make sure I did not skive on that side. I then removed this bone. A oil field technician was used. Soft tissue and osteophytes removed from either side of the knee and the spacer block was then trialed and it felt like a 6 or a 7 would be most appropriate. We then prepared the tibia. It was sized to be a 6. Drilled, broached and placed the trial components. I had also done the sulcus cut on the femur. The trial components were then placed and reduced and put through a range of motion. I was pleased with a size 6. [place] like it was very appropriate stability in flexion/extension. I did have to do a little bit more of a medial release that I had done fairly extensive once the beginning. Soft tissue balance and range of motion were excellent. I then drilled the holes in the end of the femur. I freehand cut the patella removing about 7 or 8 mm of bone. Sized to be a 35. Drill holes were placed. The patella tracked very nicely. The personnel security assistant prepared the bone cement as I removed the components. Irrigated copiously. Placed some Exparel in the deep tissues and dried the bony surfaces. Cemented on the tibial component. Placed polyethylene. Cemented on the femoral component. Removed excess bone cement. Placed the patella. Held this in place with a clamp and irrigated copiously. Tranexamic acid (TXA) solution was placed. Remaining Exparel solution was placed deep in the tissues. Once the cement hardened, final irrigation was performed. Closed the deep layer with #1 Vicryl suture in running Stratafix suture obtaining a watertight closure. Made sure the patella tracked well after this and then irrigated, closed the subcu with #2-0 Vicryl and the skin with chasity. Sterile dressing was applied. Tourniquet was deflated. He was taken to recovery room in stable condition. There were known complications. The plan will be routine postop. The personnel security assistant was instrumental in holding retractors and making the distal femoral cut under my direct supervision and mixing the bone cement, assisting in wound closure.
[2018-10-06] MEDS: HumaLOG INSULIN (NovoLOG) PER UNIT SC SCH (17:38)
[2018-10-06] MEDS: PERCOCET 5MG/325MG TAB PO PRN ×2 (17:39→23:57)
[2018-10-06] MEDS ORDERED: HumaLOG INSULIN (NovoLOG) PER UNIT SC SCH ×2 (21:00)
[2018-10-06] MEDS: RANOLAZINE 500 MG ER TAB PO SCH (21:04)
[2018-10-06] MEDS: PREGABALIN 100 MG CAP (LYRICA) PO SCH (21:04)
[2018-10-06] MEDS: METOPROLOL TART 25 MG TABLET PO SCH (21:04)
[2018-10-06] MEDS: LEVEMIR (INSULIN DETEMIR) 1 UNITS/0.01ML SC SCH (21:05)
[2018-10-07] MEDS: LR 1,000 ML IV SCH (02:12)
[2018-10-07 06:00] VITALS: BP 129/77
[2018-10-07] MEDS ORDERED: ONDANSETRON 4 MG TAB (S0181) PO PRN (06:00)
[2018-10-07 06:41] LABS: HEMATOCRIT 42.5 % (42.0-52.0); HEMOGLOBIN 14.3 g/dl (13.5-17.5); MEAN CORPUSCULAR HEMOGLOBIN 31.4 pg (27.0-33.0); MEAN CORPUSCULAR HGB CONC 33.6 g/dl (32.0-36.5); MEAN CORPUSCULAR VOLUME 93.2 fl (80.0-96.0); PLATELET COUNT, AUTOMATED 216 10^3/uL (150-450); RED BLOOD COUNT 4.56 10^6/uL (4.30-6.10); WHITE BLOOD COUNT 13.4 10^3/uL (4.0-10.0)
[2018-10-07] MEDS ORDERED: PERC5TAB12 PO (07:22)
[2018-10-07] MEDS: METOPROLOL TART 25 MG TABLET PO SCH (08:24)
[2018-10-07] MEDS: LEVEMIR (INSULIN DETEMIR) 1 UNITS/0.01ML SC SCH (08:24)
[2018-10-07] MEDS: HumaLOG INSULIN (NovoLOG) PER UNIT SC SCH (08:24)
[2018-10-07 08:25] VITALS: BP 129/77
[2018-10-07] MEDS: RANOLAZINE 500 MG ER TAB PO SCH (08:25)
[2018-10-07] MEDS: PREGABALIN 100 MG CAP (LYRICA) PO SCH (08:25)
[2018-10-07] MEDS: PERCOCET 5MG/325MG TAB PO PRN (08:26)
[2018-10-07 08:51] LABS: BLOOD UREA NITROGEN 27 MG/DL (7-18); CALCIUM LEVEL 8.9 MG/DL (8.8-10.2); CARBON DIOXIDE LEVEL 21 MEQ/L (21-32); CHLORIDE LEVEL 105 MEQ/L (98-107); CREATININE FOR GFR 1.23 MG/DL (0.70-1.30); GLOMERULAR FILTRATION RATE > 60.0 (>49); GLUCOSE, FASTING 223 MG/DL (70-100); POTASSIUM SERUM 5.2 MEQ/L (3.5-5.1); SODIUM LEVEL 137 MEQ/L (136-145)
[2018-10-07] MEDS ORDERED: DULoxetine 30 MG CAP (CYMBALTA) PO SCH (09:00)
[2018-10-07] MEDS ORDERED: LISINOPRIL 5 MG TAB PO SCH (09:00)
[2018-10-07] MEDS ORDERED: ATORVASTATIN 20 MG TAB PO SCH (09:00)
[2018-10-07] MEDS ORDERED: MIRALAX *UNIT DOSE* 17GM PACKET PO SCH (09:00)
[2018-10-07] MEDS ORDERED: ASPIRIN 81 MG ENTERIC TAB PO SCH (09:00)
[2018-10-07] MEDS ORDERED: CLOPIDOGREL 75 MG TAB PO SCH (09:00)
[2018-10-07] MEDS ORDERED: MOM 30ML SUSPENSION UDC PO SCH (09:00)
--- NOTE | 2018-10-07 16:01 | IPNPDOC ---
Date Seen The patient was seen on 10/07/18. Progress Note SUBJECTIVE: Patient was found sitting up in bed today reported feeling very well. Has been walking around with a walker with very minimal discomfort. Report some soreness over her knee but denies any significant pain. Was waiting for PT assessment to go home and is morning. OBJECTIVE PHYSICAL EXAMINATION: VITAL SIGNS: Please see below. General: No acute distress, Alert Eyes: Normal sclera, EOMI, VARSHA HENT: Atraumatic, neck supple, moist mucous membranes Cardiovascular: Normal rate, normal rhythm. No murmurs appreciated. Pulmonary: Clear to auscultation b/l, no wheezing GI: Soft, nontender, nondistended Skin: Warm and dry MSk: L. knee bandage intact, clean and dry. Neuro: CN grossly intact. No focal deficits. Strengths equal b/l. Psych: oriented x 3 LABORATORY DATA, IMAGING STUDIES, MICROBIOLOGY: Please see below. DVT prophylaxis ordered?: YES ASSESSMENT AND PLAN: 1. L. knee OA/meniscal tear - Persistent pain s/p surgical intervention 3 months prior now improved s/p L. TKA 10/06. - Pain control. - PT/OT. - Xarelto started per Ortho. Cautious for bleed as patient already on ASA and Plavix. 2. DM - Monitor BS. On lantus 60 BID at home, resume on discharge. - Diabetic diet. 3. HTN - Monitor BP. - Resume home med. 4. CAD - Resume ASA/Plavix. - No chest pain. Stable. 5. HLD - c/w statin Code status: Full Code A-FIB/CHADSVASC A-FIB History Current/History of A-Fib/PAF?: No VS, I&O, 24H, Fishbone Vital Signs/I&O Vital Signs Date Time Temp Pulse Resp B/P (MAP) Pulse Ox O2 Delivery O2 Flow Rate FiO2 10/07/18 08:56 18 10/07/18 08:25 129/77 10/07/18 08:24 86 10/07/18 06:00 97.5 93 10/06/18 12:45 2 I&O- Last 24 Hours up to 6 AM 10/07/18 06:00 Intake Total 4755 ml Output Total 2600 ml Balance 2155 ml Laboratory Data 24H LABS Laboratory Tests 2 10/06/18 16:59: Bedside Glucose (Misc Panel) 288H 10/06/18 20:07: Bedside Glucose (Misc Panel) 367H 10/07/18 05:23: Anion Gap 11, Glomerular Filtration Rate > 60.0, Blood Urea Nitrogen 27H, Creatinine 1.23, Sodium Level 137, Potassium Level 5.2H, Chloride Level 105, Carbon Dioxide Level 21, Calcium Level 8.9 10/07/18 05:41: Nucleated Red Blood Cells % (auto) 0.0 10/07/18 07:52: Bedside Glucose (Misc Panel) 287H CBC/BMP Laboratory Tests 10/07/18 05:23 Calcium Level 8.9 10/07/18 05:41 Red Blood Count 4.56, Mean Corpuscular Volume 93.2, Mean Corpuscular Hemoglobin 31.4, Mean Corpuscular Hemoglobin Concent 33.6, Red Cell Distribution Width 13.0 ANALISA MANSFIELD MD October 07, 2018 16:01
[2018-10-07] MEDS ORDERED: RIVAROXABAN 10 MG TAB (XARELTO) PO SCH (18:00)
== END 2018-10-07 11:45 | disposition home or self-care (01) | DRG 470 ==
LOC: M OR 07:51 → M MS5PR 14:00
PROVIDERS: ADMIT Orthopaedic Surgery; ATTEND Orthopaedic Surgery
PROC: 0SRD0J9 Replacement of Left Knee Joint with Synthetic Substitute, Cemented, Open Approach (ICD-10-PCS; principal; 2018-10-06 10:15)
DX: M17.12 Unilateral primary osteoarthritis, left knee (principal); Z68.41 Body mass index [BMI] 40.0-44.9, adult; E66.9 Obesity, unspecified; E11.9 Type 2 diabetes mellitus without complications; I10 Essential (primary) hypertension; G47.30 Sleep apnea, unspecified; E78.5 Hyperlipidemia, unspecified; Z79.899 Other long term (current) drug therapy; Z79.82 Long term (current) use of aspirin; Z95.2 Presence of prosthetic heart valve; I25.10 Atherosclerotic heart disease of native coronary artery without angina pectoris

== ENCOUNTER → 2018-12-17 | Outpatient (REF) | payer MEDICARE ==
[~2018-12-17] MED LIST changes: -DULO1CAP2 PO; +DULO1CAP5 PO; -LR 1,000 ML IV ONE; +RANO500T7 PO; -RANO5TAB PO; -ceFAZolin SOD 1 GM in D5W MINI-BAG PLUS 50 ML IV ONE
[2018-12-17 18:26] LABS: BASO # 0.1 10^3/uL (0.0-0.2); BASO % 0.8 % (0.0-1.0); EOS # 0.2 10^3/uL (0.0-0.50); EOS % 1.8 % (0.0-3.0); HEMATOCRIT 50.5 % (42.0-52.0); HEMOGLOBIN 16.9 g/dl (13.5-17.5); LYMPH # 2.5 10^3/uL (1.5-4.5); LYMPH % 27.5 % (24.0-44.0); MEAN CORPUSCULAR HEMOGLOBIN 30.2 pg (27.0-33.0); MEAN CORPUSCULAR HGB CONC 33.5 g/dl (32.0-36.5); MEAN CORPUSCULAR VOLUME 90.3 fl (80.0-96.0); MONO # 0.7 10^3/uL (0.0-0.8); MONO % 7.3 % (0.0-5.0); NEUTROPHILS # 5.7 10^3/uL (1.8-7.7); NEUTROPHILS % 62.1 % (36.0-66.0); PLATELET COUNT, AUTOMATED 298 10^3/uL (150-450); RED BLOOD COUNT 5.59 10^6/uL (4.30-6.10); WHITE BLOOD COUNT 9.2 10^3/uL (4.0-10.0)
[2018-12-17 18:31] LABS: ALBUMIN 3.8 GM/DL (3.2-5.2); ALT/SGPT 30 U/L (12-78); BLOOD UREA NITROGEN 33 MG/DL (7-18); CALCIUM LEVEL 10.2 MG/DL (8.8-10.2); CARBON DIOXIDE LEVEL 24 MEQ/L (21-32); CHLORIDE LEVEL 102 MEQ/L (98-107); CHOLESTEROL LEVEL 162 MG/DL (<200); CHOLESTEROL RISK RATIO 4.263 (<5); CREATININE FOR GFR 1.24 MG/DL (0.70-1.30); GLOMERULAR FILTRATION RATE > 60.0 (>49); GLUCOSE, FASTING 230 MG/DL (70-100); HDL CHOLESTEROL 38 MG/DL (>40); LDL CHOLESTEROL 67 MG/DL (<100); NON-HDL-C 124 MG/DL; POTASSIUM SERUM 4.8 MEQ/L (3.5-5.1); SODIUM LEVEL 136 MEQ/L (136-145); TOTAL PROTEIN 7.7 GM/DL (6.4-8.2); TRIGLYCERIDES LEVEL 285 MG/DL (<150)
[2018-12-17 19:26] LABS: HEMOGLOBIN A1c 8.2 %
== END ==
LOC: M LAB REF 17:25
PROVIDERS: ATTEND Nurse Practitioner Family
DX: E78.5 Hyperlipidemia, unspecified (principal); I10 Essential (primary) hypertension; Z79.899 Other long term (current) drug therapy

== ENCOUNTER → 2019-03-26 | Outpatient (CLI) | payer MEDICARE ==
[~2019-03-26] MED LIST changes: +LISI20TA20 PO; -LISI20TA3 PO
[2019-03-26 14:18] LABS: CREATININE FOR GFR 1.47 MG/DL (0.70-1.30); GLOMERULAR FILTRATION RATE 51.7 (>49)
== END ==
LOC: M LAB 12:37
PROVIDERS: ATTEND Surgery
DX: K43.9 Ventral hernia without obstruction or gangrene (principal)

== ENCOUNTER → 2019-04-05 | Outpatient (CLI) | payer MEDICARE ==
[~2019-04-05] MED LIST changes: +GASTROGRAFIN SOLUTION 30ML (Q9963) As Ordered ONE; +ISOVUE-370 76% 100ML VIAL (Q9967) As Ordered ONE
--- NOTE | 2019-04-05 14:54 | REP ---
CT abdomen and pelvis with IV and oral contrast: History: Ventral hernia. Without obstruction. Comparison study: October 09, 2017. CT contrast dose: 100 mL of intravenous Isovue [address] findings: Preliminary digital solutions development analyst radiograph shows an unremarkable bowel gas pattern. The lung bases are clear. The liver and the spleen are normal in size, homogeneous in texture. No abnormality is noted in the gallbladder. There are one or two punctate calcifications in the pancreatic head consistent with prior pancreatitis. No pancreatic mass or cyst is seen. Normal adrenals are seen bilaterally. The kidneys enhance symmetrically and are morphologically unremarkable. There is a tiny subcentimeter cyst in the left kidney. No retroperitoneal mass or adenopathy is seen. There is mild vascular calcification in a normal caliber aorta. Surgical clips and sutures are seen post right inguinal herniorrhaphy. There is a ventral hernia however transmitting omental fat through an abdominal wall defect which measures 4.8 cm craniocaudal by 7.4 cm in right to left dimension. This appears to be just above the umbilicus. No other abdominal wall defect is seen. Prostate, seminal vesicles and urinary bladder are unremarkable. Small and large intestinal bowel loops are normal in appearance. The appendix is surgically absent. There are bilateral pars defects at L5 consistent with spondylolysis. No spondylolisthesis is evident. No bony destructive lesion. Impression: 1. Fairly large supraumbilical midline ventral hernia transmitting omental fat. 2. Status post right inguinal herniorrhaphy. 3. Status post appendectomy. 4. Bilateral L5 spondylolysis without spondylolisthesis. Electronically Signed by Honorio Kumar MD 04/05/2019 05:11 P
== END ==
LOC: M RAD 08:14
PROVIDERS: ATTEND Surgery
DX: M43.06 Spondylolysis, lumbar region (principal); K43.9 Ventral hernia without obstruction or gangrene; E66.01 Morbid (severe) obesity due to excess calories; Z90.89 Acquired absence of other organs
CPT/HCPCS: 74177; Q9963; Q9967

== ENCOUNTER → 2019-04-12 | Outpatient (REF) | payer MEDICARE ==
[~2019-04-12] MED LIST changes: -GASTROGRAFIN SOLUTION 30ML (Q9963) As Ordered ONE; -ISOVUE-370 76% 100ML VIAL (Q9967) As Ordered ONE
[2019-04-12 13:53] LABS: BASO # 0.1 10^3/uL (0.0-0.2); BASO % 0.8 % (0.0-1.0); EOS # 0.2 10^3/uL (0.0-0.5); EOS % 2.3 % (0.0-3.0); HEMATOCRIT 50.2 % (42.0-52.0); HEMOGLOBIN 16.6 g/dl (13.5-17.5); LYMPH # 1.8 10^3/uL (1.5-5.0); LYMPH % 24.9 % (24.0-44.0); MEAN CORPUSCULAR HEMOGLOBIN 31.1 pg (27.0-33.0); MEAN CORPUSCULAR HGB CONC 33.1 g/dl (32.0-36.5); MONO # 0.5 10^3/uL (0.0-0.8); MONO % 7.2 % (0.0-5.0); NEUTROPHILS # 4.5 10^3/uL (1.5-8.5); NEUTROPHILS % 64.2 % (36.0-66.0); PLATELET COUNT, AUTOMATED 240 10^3/uL (150-450); RED BLOOD COUNT 5.34 10^6/uL (4.30-6.10); WHITE BLOOD COUNT 7.1 10^3/uL (4.0-10.0)
[2019-04-12 14:04] LABS: ALBUMIN 3.5 GM/DL (3.2-5.2); ALT/SGPT 31 U/L (12-78); BILIRUBIN,TOTAL 0.8 MG/DL (0.2-1.0); BLOOD UREA NITROGEN 21 MG/DL (7-18); CALCIUM LEVEL 9.2 MG/DL (8.8-10.2); CARBON DIOXIDE LEVEL 27 MEQ/L (21-32); CHLORIDE LEVEL 104 MEQ/L (98-107); CHOLESTEROL LEVEL 153 MG/DL (<200); CHOLESTEROL RISK RATIO 3.558 (<5); CREATININE FOR GFR 1.15 MG/DL (0.70-1.30); GLOMERULAR FILTRATION RATE > 60.0 (>49); GLUCOSE, FASTING 222 MG/DL (70-100); HDL CHOLESTEROL 43 MG/DL (>40); LDL CHOLESTEROL 77 MG/DL (<100); NON-HDL-C 110 MG/DL; POTASSIUM SERUM 4.4 MEQ/L (3.5-5.1); SODIUM LEVEL 141 MEQ/L (136-145); TOTAL PROTEIN 7.2 GM/DL (6.4-8.2); TRIGLYCERIDES LEVEL 163 MG/DL (<150)
== END ==
LOC: M LAB REF 13:03
PROVIDERS: ATTEND Nurse Practitioner Family
DX: E78.5 Hyperlipidemia, unspecified (principal); E11.9 Type 2 diabetes mellitus without complications; I10 Essential (primary) hypertension

== ENCOUNTER → 2019-06-23 | Outpatient (REF) | payer MEDICARE ==
[~2019-06-23] MED LIST changes: +ANEC4CRE3 TOP; +AUGM875T28 PO
[2019-06-23 12:47] LABS: BASO % 0.4 % (0.0-1.0); EOS # 0.1 10^3/uL (0.0-0.5); EOS % 1.9 % (0.0-3.0); HEMATOCRIT 48.3 % (42.0-52.0); HEMOGLOBIN 16.4 g/dl (13.5-17.5); LYMPH # 1.8 10^3/uL (1.5-5.0); LYMPH % 25.8 % (24.0-44.0); MEAN CORPUSCULAR HEMOGLOBIN 31.8 pg (27.0-33.0); MEAN CORPUSCULAR VOLUME 93.6 fl (80.0-96.0); MONO # 0.5 10^3/uL (0.0-0.8); MONO % 6.9 % (0.0-5.0); NEUTROPHILS # 4.5 10^3/uL (1.5-8.5); NEUTROPHILS % 64.4 % (36.0-66.0); PLATELET COUNT, AUTOMATED 253 10^3/uL (150-450); RED BLOOD COUNT 5.16 10^6/uL (4.30-6.10)
[2019-06-23 12:59] LABS: ALBUMIN 3.6 GM/DL (3.2-5.2); ALT/SGPT 23 U/L (12-78); BLOOD UREA NITROGEN 13 MG/DL (7-18); CALCIUM LEVEL 9.1 MG/DL (8.8-10.2); CARBON DIOXIDE LEVEL 24 MEQ/L (21-32); CHLORIDE LEVEL 108 MEQ/L (98-107); CHOLESTEROL LEVEL 142 MG/DL (<200); CHOLESTEROL RISK RATIO 3.641 (<5); CREATININE FOR GFR 1.13 MG/DL (0.70-1.30); GLOMERULAR FILTRATION RATE > 60.0 (>49); GLUCOSE, FASTING 134 MG/DL (70-100); HDL CHOLESTEROL 39 MG/DL (>40); LDL CHOLESTEROL 61 MG/DL (<100); NON-HDL-C 103 MG/DL; POTASSIUM SERUM 4.8 MEQ/L (3.5-5.1); SODIUM LEVEL 139 MEQ/L (136-145); TOTAL PROTEIN 6.9 GM/DL (6.4-8.2); TRIGLYCERIDES LEVEL 210 MG/DL (<150)
[2019-06-23 13:12] LABS: HEMOGLOBIN A1c 9.1 %
== END ==
LOC: M LAB REF 11:20
PROVIDERS: ATTEND Nurse Practitioner Family
DX: I10 Essential (primary) hypertension (principal); E78.5 Hyperlipidemia, unspecified; E11.9 Type 2 diabetes mellitus without complications

== ENCOUNTER 2019-06-24 18:01 | Emergency (ER) | payer MEDICARE ==
[~2019-06-24] VITALS: Ht 172.7 cm; Wt 132.4 kg
[~2019-06-24 18:01] MED LIST changes: -ANEC4CRE3 TOP; -AUGM875T28 PO
[2019-06-24] MEDS ORDERED: ANEC4CRE3 TOP (20:21)
[2019-06-24] MEDS ORDERED: AUGM875T28 PO (20:21)
[2019-06-24] MEDS ORDERED: AUGMENTIN 875 MG TAB PO ONE (20:30)
[2019-06-24 20:39] VITALS: BP 131/65
== END 2019-06-24 20:42 | disposition home or self-care (01) ==
LOC: M ED 18:01
DX: L03.114 Cellulitis of left upper limb (principal); E11.9 Type 2 diabetes mellitus without complications; I10 Essential (primary) hypertension; E78.5 Hyperlipidemia, unspecified; Z95.5 Presence of coronary angioplasty implant and graft; Z79.899 Other long term (current) drug therapy; Z79.82 Long term (current) use of aspirin; Z79.4 Long term (current) use of insulin

== ENCOUNTER → 2019-08-30 | Outpatient (REF) | payer MEDICARE ==
[~2019-08-30] MED LIST changes: +ANEC4CRE3 TOP; +AUGM875T28 PO
[2019-08-30 12:04] LABS: BASO # 0.1 10^3/uL (0.0-0.2); BASO % 0.8 % (0.0-1.0); EOS # 0.1 10^3/uL (0.0-0.5); EOS % 1.7 % (0.0-3.0); HEMATOCRIT 49.6 % (42.0-52.0); HEMOGLOBIN 17.3 g/dl (13.5-17.5); LYMPH # 1.9 10^3/uL (1.5-5.0); LYMPH % 24.8 % (24.0-44.0); MEAN CORPUSCULAR HEMOGLOBIN 32.1 pg (27.0-33.0); MEAN CORPUSCULAR HGB CONC 34.9 g/dl (32.0-36.5); MONO # 0.6 10^3/uL (0.0-0.8); MONO % 7.6 % (0.0-5.0); NEUTROPHILS % 64.6 % (36.0-66.0); PLATELET COUNT, AUTOMATED 287 10^3/uL (150-450); RED BLOOD COUNT 5.39 10^6/uL (4.30-6.10); WHITE BLOOD COUNT 7.7 10^3/uL (4.0-10.0)
[2019-08-30 12:21] LABS: ALBUMIN 3.6 GM/DL (3.2-5.2); ALT/SGPT 30 U/L (12-78); BLOOD UREA NITROGEN 25 MG/DL (7-18); CALCIUM LEVEL 9.5 MG/DL (8.8-10.2); CARBON DIOXIDE LEVEL 26 MEQ/L (21-32); CHLORIDE LEVEL 107 MEQ/L (98-107); CHOLESTEROL LEVEL 144 MG/DL (<200); CHOLESTEROL RISK RATIO 4.114 (<5); CREATININE FOR GFR 1.13 MG/DL (0.70-1.30); GLOMERULAR FILTRATION RATE > 60.0 (>49); GLUCOSE, FASTING 185 MG/DL (70-100); HDL CHOLESTEROL 35 MG/DL (>40); LDL CHOLESTEROL 70 MG/DL (<100); NON-HDL-C 109 MG/DL; POTASSIUM SERUM 4.7 MEQ/L (3.5-5.1); SODIUM LEVEL 137 MEQ/L (136-145); TOTAL PROTEIN 7.2 GM/DL (6.4-8.2); TRIGLYCERIDES LEVEL 196 MG/DL (<150)
[2019-08-30 12:23] LABS: HEMOGLOBIN A1c 7.8 %
== END ==
LOC: M LAB REF 11:51
PROVIDERS: ATTEND Nurse Practitioner Family
DX: Z13.9 Encounter for screening, unspecified (principal); E66.01 Morbid (severe) obesity due to excess calories; E78.5 Hyperlipidemia, unspecified; D64.9 Anemia, unspecified; I11.9 Hypertensive heart disease without heart failure; E11.9 Type 2 diabetes mellitus without complications; I50.9 Heart failure, unspecified

== ENCOUNTER → 2019-10-08 | Outpatient (CLI) | payer MEDICARE ==
[~2019-10-08] MED LIST changes: +GLIP10TA6 PO; +GLIP5TAB20 PO; -LISI-672 PO; +LISI30TA4 PO; +METF500T13 PO; +PERCOCET PO; +VITA200016 PO; +VITAD1000T PO
== END ==
LOC: M LABSMTC 09:21
PROVIDERS: ATTEND Anesthesiology
DX: Z01.812 Encounter for preprocedural laboratory examination (principal); Z11.59 Encounter for screening for other viral diseases
CPT/HCPCS: C9803; U0003

== ENCOUNTER 2019-10-11 06:03 | Day surgery (SDC) | payer MEDICARE ==
[~2019-10-11] VITALS: Ht 172.7 cm; Wt 108.9 kg
[2019-10-11] VITALS (9 sets, daily range): BP systolic 130–141; BP diastolic 77–88; O2SAT 94–96
[~2019-10-11 06:03] MED LIST changes: -GLIP10TA6 PO; +LIDOCAINE 1% MDV 20ML VIAL SQ PRN; +LR 1,000 ML IV ONE; +LevoFLOXacin IV 500 MG in IV 1 EA IV ONE; -METF500T13 PO; -PERCOCET PO
[2019-10-11] MEDS ORDERED: BUPIVACAINE HCL 0.25% 30ML VIAL As Ordered ONE (07:12)
[2019-10-11] MEDS ORDERED: BUPIVACAINE HCL 0.25% 10ML VIAL As Ordered ONE (07:12)
[2019-10-11] MEDS ORDERED: LIDOCAINE 1% SDV 30ML VIAL As Ordered ONE (07:12)
[2019-10-11] MEDS ORDERED: BUPIVACAINE LIPOSOME/PF 1.3% 20ML VIAL (13.3MG/ML)(EXPAREL)(C9290 PER1MG) As Ordered ONE (07:12)
[2019-10-11] MEDS ORDERED: MIDAZOLAM INJ 2MG/2ML VIAL (J2250 PER 1MG) As Ordered ONE (08:14)
[2019-10-11] MEDS ORDERED: METOPROLOL 5 MG/5 ML VIAL As Ordered ONE (08:14)
[2019-10-11] MEDS ORDERED: dexameTHASONE 4 MG/ML 1ML VIAL (J1100 PER 1MG) As Ordered ONE (08:14)
[2019-10-11] MEDS ORDERED: LIDOCAINE 2% 100MG/5ML SDV (FOR ANES.) As Ordered ONE (08:14)
[2019-10-11] MEDS ORDERED: propofoL 200 MG/20 ML VIAL As Ordered ONE ×2 (08:14→11:47)
[2019-10-11] MEDS ORDERED: HYDROmorphone HCL 2 MG/ML 1ML VIAL (J1170) As Ordered ONE (08:14)
[2019-10-11] MEDS ORDERED: ROCURONIUM BROMIDE 50 MG/5 ML VIAL As Ordered ONE ×3 (08:14→11:49)
[2019-10-11] MEDS ORDERED: fentaNYL 100 MCG/2 ML INJECTION (J3010) As Ordered ONE (08:14)
[2019-10-11] MEDS ORDERED: ONDANSETRON 4MG/2ML VIAL As Ordered ONE (08:29)
[2019-10-11] MEDS ORDERED: SUGAMMADEX SODIUM 500 MG/5 ML VIAL (BRIDION) As Ordered ONE (08:31)
[2019-10-11] MEDS ORDERED: ePHEDrine SULFATE 25 MG/5 ML(5MG/ML) SYRINGE As Ordered ONE (11:50)
[2019-10-11] MEDS ORDERED: DESFLURANE 240 ML INHALANT As Ordered ONE (12:17)
[2019-10-11] MEDS: LR 1,000 ML IV SCH ×2 (12:55→15:00)
[2019-10-11] MEDS ORDERED: ACETAMINOPHEN TAB 650MG DOSE (2X325MG) PO PRN (13:00)
[2019-10-11] MEDS ORDERED: DEXTROSE 50% 50 ML SYRINGE IV PRN (13:00)
[2019-10-11] MEDS ORDERED: MORPHINE 2 MG/ML 1ML VIAL (J2270) IV PRN (13:00)
[2019-10-11] MEDS ORDERED: GLUCOSE 4GM CHEW TABLET PO PRN (13:00)
[2019-10-11] MEDS ORDERED: PERCOCET 5MG/325MG TAB PO PRN ×2 (13:00)
[2019-10-11] MEDS ORDERED: GLUCAGON INJ 1MG VIAL SC PRN (13:00)
[2019-10-11] MEDS ORDERED: ONDANSETRON 4MG/2ML VIAL IV PRN ×2 (13:00→14:00)
[2019-10-11] MEDS ORDERED: GLIP10TA6 PO (13:45)
[2019-10-11] MEDS ORDERED: METF500T13 PO (13:45)
[2019-10-11] MEDS ORDERED: HumaLOG INSULIN (NovoLOG) PER UNIT SC ONE (13:45)
[2019-10-11] MEDS ORDERED: oxyCODONE 5MG TAB PO PRN (14:00)
[2019-10-11] MEDS ORDERED: fentaNYL 100 MCG/2 ML INJECTION (J3010) IV PRN (14:00)
[2019-10-11] MEDS ORDERED: HYDROMORPHONE HCL 0.5 MG/ 0.5 ML SYRINGE (J1170 PER 1) IV PRN (14:00)
[2019-10-11] MEDS ORDERED: LR 1,000 ML IV SCH (14:00)
[2019-10-11] MEDS: KETOROLAC 30 MG/ML 1ML VIAL IV PRN (17:59)
[2019-10-11] MEDS: HumaLOG INSULIN (NovoLOG) PER UNIT SC SCH (18:00)
[2019-10-11] MEDS ORDERED: HumaLOG INSULIN (NovoLOG) PER UNIT SC SCH (21:00)
[2019-10-11] MEDS: SENOKOT S TAB PO SCH (21:59)
[2019-10-11] MEDS: RANOLAZINE 500 MG ER TAB PO SCH (21:59)
[2019-10-11] MEDS: METOPROLOL TART 25 MG TABLET PO SCH (21:59)
[2019-10-12 02:00] VITALS: BP 139/86
--- NOTE | 2019-10-12 04:49 | ROOPDOC ---
[facility] Report Of Operation Report of Operation DATE OF PROCEDURE: 10/11/19 PREPROCEDURE DIAGNOSES: recurrent ventral hernia (epigastric), morbid obesity (BMI 36.7), diastases recti POSTPROCEDURE DIAGNOSES: recurrent ventral hernia (6x6 cms), morbid obesity (BMI 36.7) diastases recti (5 cm at umbilicus). PROCEDURE: Robotic Assisted Laparoscopic Ventral Hernia Repair with bilateral myofascial release and reinforcement with giant prosthetic mesh (eTEP access, retromuscular Wolcott-Stoppa Repair 20 x 30 cm midweight polypropylene mesh). SURGEON: Uziel Bailey MD PILOT STEAM YACHT: Merry Mckoy NP (assisted with placement of ports, driving the laparoscope, management of the robotic arms and instruments on the field while I was at the surgeon's console, management of the mesh, closure of ports) ANESTHESIA: General Anesthesia with US guided bilateral TAP block (Exparel, 1/4% Marcaine, 20 mL saline). ESTIMATED BLOOD LOSS: Approximately 20 mL. COMPLICATIONS: none. REMARKS: large defect 6x6x5 cms with multiple compartments containing omentum that is incarcerated, prior mesh (IPOM) retained as part of posterior sheath, recurrence at the left lower portion of the mesh, up to 5 cm wide diastases of the linea alba. 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 He is brought to the operating room, placed supine on the table. Sequential Compression boots placed on both lower extremities for DVT prophylaxis. General endotracheal anesthesia started. A Moses catheter placed for urine output monitoring. We paused for a surgical timeout using both pre-incision safety checklist to verify correct patient, procedure site and additional clinical information prior to beginning the procedure. I used an ultrasound to [place] externally on his skin the margins of the linea alba on both sides as well as the linea semilunaris on both sides. I have allowed tenderness 12 cm of space underneath the rectus muscle on both sides. Anesthesia then under ultrasound guidance performed bilateral transversus abdominis plane (TAP) blocks. He is repositioned on the bed with his umbilicus at the break of the bed and the bed was flexed to extend the space in between hi s subcostal margin and the anterior superior iliac spine. His abdomen was then prepped and draped widely in usual sterile fashion. Using the external markings medial to the linea semilunaris at the left upper quadrant area I made a small skin incision and dissected the subcutaneous tissue with a hemostat. Using a 5 mm optical trocar (Yocasta Melhcor) this was introduced under direct vision of a 5 mm laparoscope through to the anterior fascia past the rectus abdominis muscle until the posterior rectus sheath is identified and the angle of the trocar was adjusted to run and pneumoperitoneum started to 15 mm Hg with accompanying dissection of the muscle away from the posterior sheath. Further blunt dissection with the camera done at the posterior sheath to create space with retro-muscular dissection to create space about 8 cms inferior for a second port. I continued bluntly dissecting the retro-muscular space inferiorly until an adequate space 8 cm below the first trocar insertion was created and a second 8 mm trocar was introduced under direct vision. Using this 2 trochars I laparoscopically continue the preperitoneal dissection using a [place] device connected to monopolar cautery to continue the dissection inferiorly and createdfor a third trocar inferiorly. Once this was done the da Huyen robot tower was maneuvered in place and the trochars docked to the robot. I used a forceps bipolar forceps connected to bipolar cautery and a Sanford-Cut scissors connected to monopolar cautery on my right hand and a 30 8 mm laparoscope pointed out ports. I scrubbed into console of the instruments and camera at the surgeon's console. I further develop my preperitoneal dissection on all 4 directions to expose the medial margin of the linea alba. I then sharply divided centimeter away from the medial margin of the linea alba at the upper abdomen to enter the preperitoneal space above the falciform ligament and continued dissection at this area until I reached the lateral margin of the linea alba on the other side and this was again sharply divided to enter the retrorectus space of the right side. Once this was done I continued dissecting inferiorly until I reached the level of the umbilical hernia. I dissected the hernia sac as best as I can to preserve this and entered the umbilical hernia. This is containing thickened omentum with multiple adhesions. No bowel was present within the hernia itself. With the aid of my butcher's assistant pushing external pressure at the umbilical hernia the omentum was reduced back inside the abdomen and its attachments to the sac divided sharply. Once this was done I continued dissection past the defect of the umbilical hernia taking down the peritoneum staying preperitoneal below the level of the umbilical ligaments to get into an adequate space beyond the hernia defect itself. I took it down to the level of the dome of the bladder but did not pursue taking down the bladder or the space of Retzius as visually have adequate space inferiorly. I then continued the retro-muscular dissection on the right side of the rectus muscle developing this to the level of the linea semilunaris on the right side marked by the insertion of the neurovascular bundles to the rectus muscle preserving this neurovascular bundles. After this I surveyed the abdomen to ensure adequate hemostasis. Identity which views turning the robotic laparoscopic looking down and repaired the peritoneal opening with a 20V LOC suture in a running fashion. This came together without any tension at all. I switched views looking up and used to 0V LOC in a running fashion to repair the umbilical hernia. Internally this measures 5 x 4 cm. I started well below the hernia defect plicating the linea alba together once I reached the hernia defect itself I grabbed some off the hernia sac and incorporated with the fascial defect to reduce the space above the hernia and hopefully prevent seroma formation. Once above the hernia I continued to plicate the diastases towards the level of the xiphisternum. To do this the pneumoperitoneum was gradually decreased to 8 mmHg. I used a total of 30V LOC 45 cm to perform this maneuver. Once this is done I measured my space for placement of mesh. I scrubbed back in. I obtained a 30 x 30 cm middleweight bare polypropylene mesh and I trimmed a 24 x 20 cm mesh rolled this to be accommodated in one of the 8 mm port sites. Upper quadrant port site and unrolled inside of the preperitoneal space laying flat on the posterior sheath I used Tisseel glue to affix this to the posterior sheath and gradually brought down my pneumoperitoneum while making sure that the sheath remains flat. The pneumoperitoneum was then released. The skin incisions were then closed with 4-0 Monocryl in subcuticular fashion UZIEL BAILEY MD October 12, 2019 04:49
[2019-10-12] MEDS: KETOROLAC 30 MG/ML 1ML VIAL IV PRN (05:27)
[2019-10-12 06:00] VITALS: BP 127/80
[2019-10-12 06:12] LABS: BASO % 0.4 % (0.0-1.0); EOS # 0.1 10^3/uL (0.0-0.5); EOS % 0.6 % (0.0-3.0); HEMATOCRIT 47.1 % (42.0-52.0); HEMOGLOBIN 15.4 g/dl (13.5-17.5); LYMPH # 2.2 10^3/uL (1.5-5.0); LYMPH % 19.5 % (24.0-44.0); MEAN CORPUSCULAR HEMOGLOBIN 30.6 pg (27.0-33.0); MEAN CORPUSCULAR HGB CONC 32.7 g/dl (32.0-36.5); MEAN CORPUSCULAR VOLUME 93.5 fl (80.0-96.0); MONO % 8.8 % (0.0-5.0); NEUTROPHILS # 7.9 10^3/uL (1.5-8.5); NEUTROPHILS % 70.1 % (36.0-66.0); PLATELET COUNT, AUTOMATED 254 10^3/uL (150-450); RED BLOOD COUNT 5.04 10^6/uL (4.30-6.10); WHITE BLOOD COUNT 11.3 10^3/uL (4.0-10.0)
[2019-10-12 06:35] LABS: BLOOD UREA NITROGEN 27 MG/DL (7-18); CALCIUM LEVEL 8.8 MG/DL (8.8-10.2); CARBON DIOXIDE LEVEL 27 MEQ/L (21-32); CHLORIDE LEVEL 103 MEQ/L (98-107); CREATININE FOR GFR 1.15 MG/DL (0.70-1.30); GLOMERULAR FILTRATION RATE > 60.0 (>49); GLUCOSE, FASTING 182 MG/DL (70-100); POTASSIUM SERUM 4.4 MEQ/L (3.5-5.1); SODIUM LEVEL 138 MEQ/L (136-145)
[2019-10-12] MEDS ORDERED: metFORMIN (GLUCOPHAGE) 500 MG TAB PO SCH (08:00)
[2019-10-12] MEDS: HumaLOG INSULIN (NovoLOG) PER UNIT SC SCH (08:25)
[2019-10-12 08:26] VITALS: BP 127/80
[2019-10-12] MEDS: RANOLAZINE 500 MG ER TAB PO SCH (08:26)
[2019-10-12] MEDS: METOPROLOL TART 25 MG TABLET PO SCH (08:26)
[2019-10-12] MEDS: SENOKOT S TAB PO SCH (08:27)
[2019-10-12 08:36] VITALS: O2SAT 96
[2019-10-12] MEDS ORDERED: DULoxetine 30 MG CAP (CYMBALTA) PO SCH (09:00)
[2019-10-12] MEDS ORDERED: lisinopriL 5 MG TAB PO SCH (09:00)
[2019-10-12] MEDS ORDERED: ENOXAPARIN 40MG/0.4ML SYRINGE (J1650 PER 10MG) SC SCH (09:00)
[2019-10-12] MEDS ORDERED: ATORVASTATIN 20 MG TAB PO SCH (09:00)
[2019-10-12] MEDS ORDERED: PERCOCET PO (09:27)
[2019-10-12 10:00] VITALS: BP 123/69
== END 2019-10-12 11:57 | disposition home or self-care (01) ==
LOC: M SDC 06:03 → M MSPAV 14:25 → M SDC 10-12 11:57
PROVIDERS: ATTEND Surgery
DX: K43.2 Incisional hernia without obstruction or gangrene (principal); E66.01 Morbid (severe) obesity due to excess calories; I10 Essential (primary) hypertension; E11.9 Type 2 diabetes mellitus without complications; I25.10 Atherosclerotic heart disease of native coronary artery without angina pectoris; K21.9 Gastro-esophageal reflux disease without esophagitis; G47.30 Sleep apnea, unspecified; E78.00 Pure hypercholesterolemia, unspecified; Z79.84 Long term (current) use of oral hypoglycemic drugs; Z79.4 Long term (current) use of insulin; Z79.02 Long term (current) use of antithrombotics/antiplatelets; Z79.899 Other long term (current) drug therapy; Z79.82 Long term (current) use of aspirin; Z87.891 Personal history of nicotine dependence; Z98.61 Coronary angioplasty status
CPT/HCPCS: 36415; 49656; 80048; 85025; 96361; 96372; 96374; 96376; A6024; C1781; C9290; J1100; J1170; J1650; J1885; J1956; J2250; J2405; J3010

== ENCOUNTER → 2019-10-19 | Outpatient (CLI) | payer MEDICARE ==
[~2019-10-19] MED LIST changes: +GLIP10TA6 PO; -LIDOCAINE 1% MDV 20ML VIAL SQ PRN; -LR 1,000 ML IV ONE; -LevoFLOXacin IV 500 MG in IV 1 EA IV ONE; +METF500T13 PO; +PERCOCET PO
--- NOTE | 2019-10-19 10:40 | REP ---
Left lower extremity Duplex Doppler venous ultrasound: Real time compression and duplex Doppler interrogation of the left lower extremity deep venous system is performed. The left common femoral, superficial femoral and popliteal veins are fully compressible with transducer pressure and demonstrate normal spontaneous and phasic flow, without evidence of deep venous thrombosis. Impression: No evidence of deep venous thrombosis of the left lower extremity femoral popliteal venous system. Electronically Signed by Everett Ayoub MD 10/19/2019 10:26 A
== END ==
LOC: M RAD 09:45
PROVIDERS: ATTEND Surgery
DX: Z03.89 Encounter for observation for other suspected diseases and conditions ruled out (principal)

== ENCOUNTER → 2019-11-29 | Outpatient (REF) | payer MEDICARE ==
[~2019-11-29] MED LIST changes: +D31000TA2 PO; -VITAD1000T PO
[2019-11-29 17:55] LABS: BASO # 0.1 10^3/uL (0.0-0.2); BASO % 0.8 % (0.0-1.0); EOS # 0.1 10^3/uL (0.0-0.5); EOS % 1.8 % (0.0-3.0); HEMATOCRIT 49.3 % (42.0-52.0); HEMOGLOBIN 16.2 g/dl (13.5-17.5); LYMPH # 1.7 10^3/uL (1.5-5.0); LYMPH % 24.3 % (24.0-44.0); MEAN CORPUSCULAR HEMOGLOBIN 30.1 pg (27.0-33.0); MEAN CORPUSCULAR HGB CONC 32.9 g/dl (32.0-36.5); MEAN CORPUSCULAR VOLUME 91.5 fl (80.0-96.0); MONO # 0.6 10^3/uL (0.0-0.8); NEUTROPHILS # 4.6 10^3/uL (1.5-8.5); NEUTROPHILS % 64.5 % (36.0-66.0); PLATELET COUNT, AUTOMATED 272 10^3/uL (150-450); RED BLOOD COUNT 5.39 10^6/uL (4.30-6.10); WHITE BLOOD COUNT 7.2 10^3/uL (4.0-10.0)
[2019-11-29 18:09] LABS: ALBUMIN 3.3 GM/DL (3.2-5.2); ALT/SGPT 19 U/L (12-78); BILIRUBIN,TOTAL 0.8 MG/DL (0.2-1.0); BLOOD UREA NITROGEN 20 MG/DL (7-18); CALCIUM LEVEL 8.8 MG/DL (8.8-10.2); CARBON DIOXIDE LEVEL 26 MEQ/L (21-32); CHLORIDE LEVEL 107 MEQ/L (98-107); CHOLESTEROL LEVEL 145 MG/DL (<200); CHOLESTEROL RISK RATIO 4.142 (<5); CREATININE FOR GFR 0.89 MG/DL (0.70-1.30); GLOMERULAR FILTRATION RATE > 60.0 (>49); GLUCOSE, FASTING 126 MG/DL (70-100); HDL CHOLESTEROL 35 MG/DL (>40); LDL CHOLESTEROL 79 MG/DL (<100); NON-HDL-C 110 MG/DL; POTASSIUM SERUM 4.8 MEQ/L (3.5-5.1); SODIUM LEVEL 139 MEQ/L (136-145); TOTAL PROTEIN 6.7 GM/DL (6.4-8.2); TRIGLYCERIDES LEVEL 154 MG/DL (<150)
[2019-11-29 19:20] LABS: HEMOGLOBIN A1c 7.4 %
== END ==
LOC: M LAB REF 16:39
PROVIDERS: ATTEND Nurse Practitioner Family
DX: M79.605 Pain in left leg (principal); Z13.9 Encounter for screening, unspecified; E78.5 Hyperlipidemia, unspecified; I11.9 Hypertensive heart disease without heart failure; I10 Essential (primary) hypertension; E11.9 Type 2 diabetes mellitus without complications

== ENCOUNTER → 2020-02-28 | Outpatient (REF) | payer MEDICARE ==
[2020-02-28 14:11] LABS: BASO % 0.4 % (0.0-1.0); EOS # 0.1 10^3/uL (0.0-0.5); EOS % 1.4 % (0.0-3.0); HEMATOCRIT 50.2 % (42.0-52.0); HEMOGLOBIN 16.8 g/dl (13.5-17.5); LYMPH # 2.2 10^3/uL (1.5-5.0); LYMPH % 22.6 % (24.0-44.0); MEAN CORPUSCULAR HEMOGLOBIN 30.7 pg (27.0-33.0); MEAN CORPUSCULAR HGB CONC 33.5 g/dl (32.0-36.5); MEAN CORPUSCULAR VOLUME 91.6 fl (80.0-96.0); MONO # 0.6 10^3/uL (0.0-0.8); NEUTROPHILS # 6.7 10^3/uL (1.5-8.5); PLATELET COUNT, AUTOMATED 251 10^3/uL (150-450); RED BLOOD COUNT 5.48 10^6/uL (4.30-6.10); WHITE BLOOD COUNT 9.7 10^3/uL (4.0-10.0)
[2020-02-28 14:33] LABS: HEMOGLOBIN A1c 7.8 %
[2020-02-28 14:43] LABS: ALBUMIN 3.7 GM/DL (3.2-5.2); ALT/SGPT 19 U/L (12-78); BILIRUBIN,TOTAL 1.1 MG/DL (0.2-1.0); BLOOD UREA NITROGEN 27 MG/DL (7-18); CALCIUM LEVEL 9.6 MG/DL (8.8-10.2); CARBON DIOXIDE LEVEL 25 MEQ/L (21-32); CHLORIDE LEVEL 103 MEQ/L (98-107); CHOLESTEROL LEVEL 155 MG/DL (<200); CHOLESTEROL RISK RATIO 3.522 (<5); CREATININE FOR GFR 1.09 MG/DL (0.70-1.30); GLOMERULAR FILTRATION RATE > 60.0 (>49); GLUCOSE, FASTING 168 MG/DL (70-100); HDL CHOLESTEROL 44 MG/DL (>40); LDL CHOLESTEROL 79 MG/DL (<100); NON-HDL-C 111 MG/DL; POTASSIUM SERUM 4.6 MEQ/L (3.5-5.1); SODIUM LEVEL 136 MEQ/L (136-145); TOTAL PROTEIN 7.2 GM/DL (6.4-8.2); TRIGLYCERIDES LEVEL 160 MG/DL (<150)
== END ==
LOC: M LAB REF 12:33
PROVIDERS: ATTEND Nurse Practitioner Family
DX: E11.42 Type 2 diabetes mellitus with diabetic polyneuropathy (principal); M79.605 Pain in left leg; Z13.9 Encounter for screening, unspecified; E66.01 Morbid (severe) obesity due to excess calories; D64.9 Anemia, unspecified; E78.5 Hyperlipidemia, unspecified; I10 Essential (primary) hypertension

== ENCOUNTER → 2020-05-01 | Outpatient (CLI) | payer MEDICARE | LOC: M LABSMTC 09:07 | PROVIDERS: ATTEND Pediatrics | DX: Z20.828 Contact with and (suspected) exposure to other viral communicable diseases (principal) ==

== ENCOUNTER → 2020-06-14 | Outpatient (CLI) | payer SELFPAY ==
[~2020-06-14] MED LIST changes: +GABA-282 PO; -GABA-843 PO; +ISOS1TAB36 PO; -ISOS60TA2 PO; -LISI-542 PO; +LISI-898 PO
== END ==
LOC: M LABSMTC 09:36
PROVIDERS: ATTEND Pediatrics
DX: Z20.822 Contact with and (suspected) exposure to COVID-19 (principal)

== ENCOUNTER → 2020-06-30 | Outpatient (CLI) | payer MEDICARE ==
--- NOTE | 2020-06-30 10:47 | REP ---
INDICATION: VENTRAL HERNIA W/O OBST OR GANGRENE, GEN ABD PAIN COMPARISON: Comparison CT study April 05, 2019.. TECHNIQUE: Helical scanning is acquired in 4 mm axial images were reformatted. Coronal and sagittal MPR images were generated and reviewed. FINDINGS: Preliminary digital cupola tender helper radiograph demonstrates an unremarkable bowel gas pattern. Lung bases are clear on axial CT images. There is no evidence of pleural effusion or upper abdominal ascites. The liver and spleen are normal in size homogeneous in texture. The gallbladder shows no abnormality. There are 2 or 3 calcifications in the pancreatic head consistent with previous episodes of pancreatitis. No pancreatic mass, or cyst is seen. No evidence of biliary ductal dilation seen. The kidneys are morphologically intact. No intrarenal calculus or hydronephrosis is seen. Small and large intestinal bowel loops are normal in the upper abdomen. There are surgical sutures in the right inguinal region consistent with previous hernia repair. The appendix is surgically absent. Pelvic CT images show no evidence of mass or adenopathy. Prostate, seminal vesicles and urinary bladder are unremarkable. No abdominal wall defect is seen. There is a small fluid collection in the infraumbilical subcutaneous fat of the anterior abdominal wall consistent with postoperative change. This is new since and post ventral hernia repair. This fluid collection measures 2.8 x 3.7 by 2.4 cm. It is consistent with a seroma. IMPRESSION: Status post appendectomy and ventral hernia repair and right inguinal herniorrhaphy. No abdominal wall defect is seen. Small seroma at the ventral hernia repair site. No acute intra-abdominal abnormality. <Electronically signed by Russell Kumar > 06/30/20 [id number]
== END ==
LOC: M RAD 08:34
PROVIDERS: ATTEND Surgery
DX: K43.9 Ventral hernia without obstruction or gangrene (principal); R10.84 Generalized abdominal pain

== ENCOUNTER 2021-09-17 14:33 | Emergency (ER) | payer MEDICARE, SELFPAY ==
[~2021-09-17] VITALS: Ht 172.7 cm; Wt 118.2 kg
[~2021-09-17 14:33] MED LIST changes: -D31000TA2 PO; -LISI-898 PO; -LISI20TA20 PO; +LISI20TA37 PO; +LISI5TAB11 PO; +VITA100093 PO
[2021-09-17 14:34] VITALS: BP 112/66
[2021-09-17] MEDS ORDERED: METF-877 PO (20:36)
[2021-09-17] MEDS ORDERED: FARX1TAB3 PO (20:36)
[2021-09-17] MEDS ORDERED: NOVOINJ SC (20:36)
[2021-09-17] MEDS ORDERED: VALA1TAB5 PO (23:46)
[2021-09-17] MEDS ORDERED: NEUR300C PO (23:46)
== END 2021-09-17 16:55 | disposition left against medical advice (07) ==
LOC: M ED 14:33
DX: Z53.29 Procedure and treatment not carried out because of patient's decision for other reasons (principal)

== ENCOUNTER 2021-09-17 20:25 | Emergency (ER) | payer MEDICARE ==
[~2021-09-17] VITALS: Ht 172.7 cm; Wt 119.8 kg
[2021-09-17 20:27] VITALS: BP 120/67
[2021-09-17] MEDS ORDERED: FARX1TAB3 PO (20:36)
[2021-09-17] MEDS ORDERED: METF-877 PO (20:36)
[2021-09-17] MEDS ORDERED: NOVOINJ SC (20:36)
[2021-09-17] MEDS ORDERED: valACYclovir HCL 500 MG TAB PO ONE (23:40)
[2021-09-17] MEDS ORDERED: GABAPENTIN 300 MG CAP PO ONE (23:40)
[2021-09-17] MEDS ORDERED: VALA1TAB5 PO (23:46)
[2021-09-17] MEDS ORDERED: NEUR300C PO (23:46)
== END 2021-09-18 00:38 | disposition home or self-care (01) ==
LOC: M ED 20:25
DX: B02.9 Zoster without complications (principal); E11.9 Type 2 diabetes mellitus without complications; I10 Essential (primary) hypertension; E78.5 Hyperlipidemia, unspecified; Z95.5 Presence of coronary angioplasty implant and graft; Z79.899 Other long term (current) drug therapy; Z79.82 Long term (current) use of aspirin; Z79.4 Long term (current) use of insulin; Z79.84 Long term (current) use of oral hypoglycemic drugs; Z79.01 Long term (current) use of anticoagulants

== ENCOUNTER 2021-09-30 17:22 | Emergency (ER) | payer MEDICARE ==
[~2021-09-30] VITALS: Ht 172.7 cm; Wt 120.5 kg
[~2021-09-30 17:22] MED LIST changes: +FARX1TAB3 PO; +METF-877 PO; +NEUR300C PO; +NOVOINJ SC; +VALA1TAB5 PO
[2021-09-30 17:24] VITALS: BP 130/70
[2021-09-30] MEDS ORDERED: CEPHALEXIN 500 MG CAP PO ONE (19:30)
[2021-09-30] MEDS ORDERED: CEPH500C PO (19:30)
[2021-09-30] MEDS ORDERED: BACITRACIN OINTMENT 30GM TUBE TOP ONE (19:35)
== END 2021-09-30 20:13 | disposition home or self-care (01) ==
LOC: M ED 17:22
DX: L08.9 Local infection of the skin and subcutaneous tissue, unspecified (principal); E11.9 Type 2 diabetes mellitus without complications; I10 Essential (primary) hypertension; I25.10 Atherosclerotic heart disease of native coronary artery without angina pectoris; I25.2 Old myocardial infarction

== ENCOUNTER → 2022-05-01 | Outpatient (REF) | payer OTHER, MEDICAID, MEDICARE ==
[~2022-05-01] MED LIST changes: +CEPH500C PO; +CLOP75TA99 PO; -PLAV1TAB2 PO
== END ==
LOC: M LAB REF 12:57
PROVIDERS: ATTEND Nurse Practitioner Family
DX: E11.65 Type 2 diabetes mellitus with hyperglycemia (principal)

== ENCOUNTER → 2022-05-08 | Outpatient (REF) | payer OTHER, MEDICAID, MEDICARE ==
[2022-05-08 13:21] LABS: CHOLESTEROL RISK RATIO 3.06 (<5); HDL CHOLESTEROL 40.4 MG/DL (>40); LDL CHOLESTEROL 54.8 MG/DL (<100)
== END ==
LOC: M LAB REF 12:41
PROVIDERS: ATTEND Nurse Practitioner Family
DX: E78.5 Hyperlipidemia, unspecified (principal)

== ENCOUNTER 2022-06-02 16:33 | Emergency (ER) | payer OTHER, MEDICAID, MEDICARE ==
[~2022-06-02] VITALS: Ht 172.7 cm; Wt 117.7 kg
[2022-06-02 16:34] VITALS: BP 132/70
== END 2022-06-02 18:04 | disposition left against medical advice (07) ==
LOC: M ED 16:33
DX: Z53.21 Procedure and treatment not carried out due to patient leaving prior to being seen by health care provider (principal)

== ENCOUNTER → 2022-07-01 | Outpatient (CLI) | payer MEDICARE, MEDICAID ==
[2022-07-01 14:11] LABS: BASO # 0.1 10^3/uL (0.0-0.2); EOS # 0.2 10^3/uL (0.0-0.5); EOS % 1.7 % (0.0-3.0); HEMATOCRIT 48.6 % (42.0-52.0); HEMOGLOBIN 16.4 g/dl (13.5-17.5); LYMPH # 2.8 10^3/uL (1.5-5.0); LYMPH % 24.4 % (24.0-44.0); MEAN CORPUSCULAR HEMOGLOBIN 30.8 pg (27.0-33.0); MEAN CORPUSCULAR HGB CONC 33.7 g/dl (32.0-36.5); MEAN CORPUSCULAR VOLUME 91.4 fl (80.0-96.0); MONO # 0.8 10^3/uL (0.0-0.8); NEUTROPHILS # 7.2 10^3/uL (1.5-8.5); NEUTROPHILS % 62.5 % (36.0-66.0); PLATELET COUNT, AUTOMATED 328 10^3/uL (150-450); RED BLOOD COUNT 5.32 10^6/uL (4.30-6.10); WHITE BLOOD COUNT 11.5 10^3/uL (4.0-10.0)
[2022-07-01 14:27] LABS: ERYTHROCYTE SEDIMENTATION RATE 26 mm/hr (0-20)
== END ==
LOC: M LAB 13:20
PROVIDERS: ATTEND Physician Assistant
DX: M17.11 Unilateral primary osteoarthritis, right knee (principal)

== ENCOUNTER → 2022-08-12 | Outpatient (CLI) | payer MEDICARE, MEDICAID | LOC: M RAD 08:03 | PROVIDERS: ATTEND Physician Assistant | DX: R93.6 Abnormal findings on diagnostic imaging of limbs (principal); Z96.652 Presence of left artificial knee joint | CPT/HCPCS: 78315; A9503 ==

== ENCOUNTER → 2022-09-03 | Outpatient (REF) | payer MEDICARE, MEDICAID ==
[2022-09-03 13:22] LABS: BASO # 0.1 10^3/uL (0.0-0.2); BASO % 0.7 % (0.0-1.0); EOS # 0.2 10^3/uL (0.0-0.5); EOS % 2.1 % (0.0-3.0); HEMATOCRIT 46.8 % (42.0-52.0); HEMOGLOBIN 15.6 g/dl (13.5-17.5); LYMPH # 2.1 10^3/uL (1.5-5.0); MEAN CORPUSCULAR HEMOGLOBIN 31.2 pg (27.0-33.0); MEAN CORPUSCULAR HGB CONC 33.3 g/dl (32.0-36.5); MEAN CORPUSCULAR VOLUME 93.6 fl (80.0-96.0); MONO # 0.6 10^3/uL (0.0-0.8); MONO % 8.6 % (2.0-8.0); NEUTROPHILS # 4.1 10^3/uL (1.5-8.5); NEUTROPHILS % 58.2 % (36.0-66.0); PLATELET COUNT, AUTOMATED 266 10^3/uL (150-450)
[2022-09-03 13:42] LABS: ALBUMIN 3.5 G/DL (3.2-5.2); ALKALINE PHOSPHATASE 80 U/L (46-116); ALT/SGPT 16 U/L (7.0-40); AST/SGOT 11 U/L (<34); BILIRUBIN,TOTAL 0.5 MG/DL (0.3-1.2); BLOOD UREA NITROGEN 26 MG/DL (9-23); CALCIUM LEVEL 9.7 MG/DL (8.3-10.6); CARBON DIOXIDE LEVEL 26 MMOL/L (20-31); CHLORIDE LEVEL 104 MMOL/L (98-107); CHOLESTEROL LEVEL 120 MG/DL (<200); CHOLESTEROL RISK RATIO 3.09 (<5); CREATININE FOR GFR 0.84 MG/DL (0.70-1.30); GLOMERULAR FILTRATION RATE > 60.0 (>49); GLUCOSE, FASTING 154 MG/DL (74-106); HDL CHOLESTEROL 38.8 MG/DL (>40); NON-HDL-C 81.2 MG/DL; POTASSIUM SERUM 4.7 MMOL/L (3.5-5.1); SODIUM LEVEL 139 MMOL/L (136-145); THYROID STIMULATING HORMONE 3.023 uIU/ML (0.55-4.78); TOTAL 25(OH) VITAMIN D 32.9 NG/ML (20.0-100.0); TOTAL PROTEIN 6.3 G/DL (5.7-8.2); TRIGLYCERIDES LEVEL 126 MG/DL (<150)
[2022-09-03 13:43] LABS: HEMOGLOBIN A1c 6.6 % (4.0-6.0)
== END ==
LOC: M LAB REF 12:07
PROVIDERS: ATTEND Nurse Practitioner Family
DX: Z13.228 Encounter for screening for other metabolic disorders (principal)

== ENCOUNTER → 2022-12-25 | Outpatient (CLI) | payer MEDICARE, MEDICAID ==
[2022-12-25 12:34] LABS: BASO # 0.1 10^3/uL (0.0-0.2); BASO % 0.7 % (0.0-1.0); EOS # 0.2 10^3/uL (0.0-0.5); HEMOGLOBIN 15.4 g/dl (13.5-17.5); LYMPH # 2.1 10^3/uL (1.5-5.0); LYMPH % 24.3 % (24.0-44.0); MEAN CORPUSCULAR HEMOGLOBIN 30.3 pg (27.0-33.0); MEAN CORPUSCULAR HGB CONC 33.5 g/dl (32.0-36.5); MEAN CORPUSCULAR VOLUME 90.6 fl (80.0-96.0); MONO # 0.6 10^3/uL (0.0-0.8); MONO % 7.2 % (2.0-8.0); NEUTROPHILS # 5.7 10^3/uL (1.5-8.5); NEUTROPHILS % 64.9 % (36.0-66.0); PLATELET COUNT, AUTOMATED 265 10^3/uL (150-450); RED BLOOD COUNT 5.08 10^6/uL (4.30-6.10); WHITE BLOOD COUNT 8.8 10^3/uL (4.0-10.0)
[2022-12-25 13:01] LABS: INR 0.91; PROTHROMBIN TIME 12.4 SECONDS (12.5-14.5)
[2022-12-25 13:34] LABS: ERYTHROCYTE SEDIMENTATION RATE 12 mm/hr (0-20)
== END ==
LOC: M RAD 10:28
PROVIDERS: ATTEND Nurse Practitioner Family
DX: Z01.818 Encounter for other preprocedural examination (principal)

== ENCOUNTER → 2023-01-16 | Outpatient (REF) | payer MEDICARE, MEDICAID ==
[2023-01-16 12:28] LABS: MAU/CREAT RATIO 5.8 MCG/MG (0.0-30.0)
== END ==
LOC: M LAB REF 11:30
PROVIDERS: ATTEND Nurse Practitioner Family
DX: E11.65 Type 2 diabetes mellitus with hyperglycemia (principal)

== ENCOUNTER 2023-03-02 15:28 | Emergency (ER) | payer MEDICARE, MEDICAID ==
[~2023-03-02] VITALS: Ht 172.7 cm; Wt 106.0 kg
[2023-03-02] MEDS ORDERED: ACETAMINOPHEN *IV* 1,000 MG in IV 1 EA IV ONE (19:20)
[2023-03-02 19:53] VITALS: BP 124/73; TEMP 99.9; O2SAT 99
[2023-03-02 19:53] LABS: BASO # 0.1 10^3/uL (0.0-0.2); BASO % 0.5 % (0.0-1.0); EOS # 0.1 10^3/uL (0.0-0.5); EOS % 1.2 % (0.0-3.0); HEMATOCRIT 48.5 % (42.0-52.0); HEMOGLOBIN 15.9 g/dl (13.5-17.5); LYMPH # 2.6 10^3/uL (1.5-5.0); LYMPH % 21.3 % (24.0-44.0); MEAN CORPUSCULAR HEMOGLOBIN 29.4 pg (27.0-33.0); MEAN CORPUSCULAR HGB CONC 32.8 g/dl (32.0-36.5); MEAN CORPUSCULAR VOLUME 89.8 fl (80.0-96.0); MONO % 7.9 % (2.0-8.0); NEUTROPHILS # 8.3 10^3/uL (1.5-8.5); NEUTROPHILS % 68.7 % (36.0-66.0); PLATELET COUNT, AUTOMATED 299 10^3/uL (150-450); WHITE BLOOD COUNT 12.1 10^3/uL (4.0-10.0)
[2023-03-02 20:15] LABS: CK-MB VALUE MASS < 1.0 NG/ML (<3.6)
[2023-03-02 20:16] LABS: ALKALINE PHOSPHATASE 107 U/L (46-116); ALT/SGPT 18 U/L (7.0-40); AST/SGOT 10 U/L (<34); BLOOD UREA NITROGEN 22 MG/DL (9-23); CALCIUM LEVEL 9.8 MG/DL (8.3-10.6); CARBON DIOXIDE LEVEL 28 MMOL/L (20-31); CHLORIDE LEVEL 106 MMOL/L (98-107); CREATININE FOR GFR 0.83 MG/DL (0.70-1.30); GLOMERULAR FILTRATION RATE > 60.0 (>49); GLUCOSE, FASTING 212 MG/DL (74-106); POTASSIUM SERUM 4.8 MMOL/L (3.5-5.1); SODIUM LEVEL 140 MMOL/L (136-145); TOTAL PROTEIN 7.8 G/DL (5.7-8.2)
[2023-03-02 20:17] LABS: CPK CREATINE PHOSPHOKINASE 53 U/L (46-171); MB/CK RELATIVE INDEX 1.88 (< OR =4)
[2023-03-02] MEDS ORDERED: ISOVUE-370 76% 100ML VIAL As Ordered ONE (20:31)
[2023-03-02] MEDS ORDERED: METH-1164 PO (22:12)
== END 2023-03-02 22:23 | disposition home or self-care (01) ==
LOC: M ED 15:28
DX: M54.89 Other dorsalgia (principal); R07.89 Other chest pain; R10.9 Unspecified abdominal pain; K76.0 Fatty (change of) liver, not elsewhere classified; N28.1 Cyst of kidney, acquired; E11.9 Type 2 diabetes mellitus without complications; I10 Essential (primary) hypertension; E78.5 Hyperlipidemia, unspecified; K21.9 Gastro-esophageal reflux disease without esophagitis; Z95.5 Presence of coronary angioplasty implant and graft; Z79.4 Long term (current) use of insulin; Z79.82 Long term (current) use of aspirin; Z79.899 Other long term (current) drug therapy
CPT/HCPCS: 71046; 71260; 74177; 80053; 82550; 82553; 84484; 85025; 93005; 96374; 99284; J0131; Q9967

== ENCOUNTER → 2023-03-05 | Outpatient (REF) | payer MEDICARE, MEDICAID ==
[~2023-03-05] MED LIST changes: +GLIP5TAB17 PO; -GLIP5TAB8 PO; +METH-1164 PO
[2023-03-05 17:40] LABS: CHOLESTEROL RISK RATIO 2.54 (<5); HDL CHOLESTEROL 47.6 MG/DL (>40); LDL CHOLESTEROL 50.2 MG/DL (<100); NON-HDL-C 73.4 MG/DL
== END ==
LOC: M LAB REF 16:34
PROVIDERS: ATTEND Nurse Practitioner Family
DX: E78.5 Hyperlipidemia, unspecified (principal)

== ENCOUNTER → 2023-03-12 | Outpatient (REF) | payer MEDICARE, MEDICAID ==
[2023-03-12 13:18] LABS: HEMOGLOBIN A1c 7.5 % (4.0-6.0)
[2023-03-12 13:40] LABS: ALBUMIN 3.7 G/DL (3.2-5.2); ALKALINE PHOSPHATASE 102 U/L (46-116); ALT/SGPT 19 U/L (7.0-40); AST/SGOT 13 U/L (<34); BILIRUBIN,TOTAL 0.8 MG/DL (0.3-1.2); BLOOD UREA NITROGEN 24 MG/DL (9-23); CALCIUM LEVEL 9.4 MG/DL (8.3-10.6); CARBON DIOXIDE LEVEL 28 MMOL/L (20-31); CHLORIDE LEVEL 98 MMOL/L (98-107); CREATININE FOR GFR 0.77 MG/DL (0.70-1.30); GLOMERULAR FILTRATION RATE > 60.0 (>49); GLUCOSE, FASTING 165 MG/DL (74-106); POTASSIUM SERUM 4.7 MMOL/L (3.5-5.1); SODIUM LEVEL 135 MMOL/L (136-145); TOTAL PROTEIN 7.1 G/DL (5.7-8.2)
== END ==
LOC: M LAB REF 12:22
PROVIDERS: ATTEND Nurse Practitioner Family
DX: E11.65 Type 2 diabetes mellitus with hyperglycemia (principal)

== ENCOUNTER 2023-06-09 17:17 | Emergency (ER) | payer MEDICARE, MEDICAID ==
[~2023-06-09] VITALS: Ht 172.7 cm; Wt 110.0 kg
[2023-06-10] MEDS ORDERED: ADENOSINE 6MG 2ML INJECTION IV STA ×2 (01:15)
[2023-06-10] MEDS ORDERED: ONDANSETRON 4MG 2ML VIAL IV ONE (01:15)
[2023-06-10] MEDS ORDERED: NS 1,000 ML IV ONE (01:15)
[2023-06-10 03:17] VITALS: BP 139/77; TEMP 98.9; O2SAT 99
== END 2023-06-10 03:45 | disposition left against medical advice (07) ==
LOC: M ED 17:17
DX: Z53.21 Procedure and treatment not carried out due to patient leaving prior to being seen by health care provider (principal)

== ENCOUNTER → 2023-09-11 | Outpatient (REF) | payer MEDICARE, MEDICAID ==
[2023-09-11 13:11] LABS: ALBUMIN 3.3 G/DL (3.2-5.2); ALKALINE PHOSPHATASE 90 U/L (46-116); ALT/SGPT 15 U/L (7.0-40); AST/SGOT 13 U/L (<34); BILIRUBIN,TOTAL 0.6 MG/DL (0.3-1.2); BLOOD UREA NITROGEN 34 MG/DL (9-23); CALCIUM LEVEL 10.1 MG/DL (8.3-10.6); CARBON DIOXIDE LEVEL 24 MMOL/L (20-31); CHLORIDE LEVEL 106 MMOL/L (98-107); CHOLESTEROL LEVEL 122 MG/DL (<200); CHOLESTEROL RISK RATIO 3.24 (<5); CREATININE FOR GFR 1.25 MG/DL (0.70-1.30); GLOMERULAR FILTRATION RATE > 60.0 (>49); GLUCOSE, FASTING 184 MG/DL (74-106); HDL CHOLESTEROL 37.6 MG/DL (>40); LDL CHOLESTEROL 45.8 MG/DL (<100); MAGNESIUM LEVEL 1.8 MG/DL (1.8-2.4); NON-HDL-C 84.4 MG/DL; POTASSIUM SERUM 4.9 MMOL/L (3.5-5.1); SODIUM LEVEL 137 MMOL/L (136-145); THYROID STIMULATING HORMONE 5.724 uIU/ML (0.55-4.78); TOTAL 25(OH) VITAMIN D 32.6 NG/ML (20.0-100.0); TOTAL PROTEIN 6.5 G/DL (5.7-8.2); TRIGLYCERIDES LEVEL 193 MG/DL (<150)
[2023-09-11 13:20] LABS: HEMOGLOBIN A1c 8.4 % (4.0-6.0)
[2023-09-11 13:21] LABS: BASO % 0.6 % (0.0-1.0); EOS # 0.1 10^3/uL (0.0-0.5); HEMOGLOBIN 15.6 g/dl (13.5-17.5); LYMPH # 1.9 10^3/uL (1.5-5.0); MEAN CORPUSCULAR HEMOGLOBIN 28.4 pg (27.0-33.0); MEAN CORPUSCULAR HGB CONC 33.2 g/dl (32.0-36.5); MEAN CORPUSCULAR VOLUME 85.5 fl (80.0-96.0); MONO # 0.5 10^3/uL (0.0-0.8); MONO % 7.2 % (2.0-8.0); NEUTROPHILS # 4.4 10^3/uL (1.5-8.5); NEUTROPHILS % 63.6 % (36.0-66.0); PLATELET COUNT, AUTOMATED 284 10^3/uL (150-450); WHITE BLOOD COUNT 6.8 10^3/uL (4.0-10.0)
== END ==
LOC: M LAB REF 12:38
PROVIDERS: ATTEND Nurse Practitioner Family
DX: E66.9 Obesity, unspecified (principal); E55.9 Vitamin D deficiency, unspecified; Z79.899 Other long term (current) drug therapy

== ENCOUNTER → 2023-12-01 | Outpatient (REF) | payer MEDICARE, MEDICAID ==
[2023-12-01 13:38] LABS: HEMOGLOBIN A1c 7.4 % (4.0-6.0)
[2023-12-01 14:03] LABS: ALBUMIN 3.6 G/DL (3.2-5.2); ALKALINE PHOSPHATASE 91 U/L (46-116); ALT/SGPT 19 U/L (7.0-40); AST/SGOT 10 U/L (<34); BILIRUBIN,TOTAL 0.5 MG/DL (0.3-1.2); BLOOD UREA NITROGEN 24 MG/DL (9-23); CALCIUM LEVEL 9.1 MG/DL (8.3-10.6); CARBON DIOXIDE LEVEL 27 MMOL/L (20-31); CHLORIDE LEVEL 102 MMOL/L (98-107); CREATININE FOR GFR 0.79 MG/DL (0.70-1.30); GLOMERULAR FILTRATION RATE > 60.0 (>49); GLUCOSE, FASTING 173 MG/DL (74-106); POTASSIUM SERUM 4.7 MMOL/L (3.5-5.1); SODIUM LEVEL 134 MMOL/L (136-145); TOTAL PROTEIN 6.6 G/DL (5.7-8.2)
[2023-12-01 14:05] LABS: FREE T4 0.93 NG/DL (0.89-1.76); THYROID STIMULATING HORMONE 4.901 uIU/ML (0.55-4.78)
[2023-12-01 14:18] LABS: CREATININE, URINE 33.8 MG/DL
[2023-12-01 14:19] LABS: MALB URINE SIEMENS < 3.0 MG/L; MAU/CREAT RATIO 8.8 MCG/MG (0.0-30.0)
[2023-12-02 12:02] LABS: PSA FREE 0.2 ng/mL; PSA TOTAL 0.7 ng/mL (< OR = 4.0)
== END ==
LOC: M LAB REF 13:04
PROVIDERS: ATTEND Nurse Practitioner Family
DX: Z12.5 Encounter for screening for malignant neoplasm of prostate (principal); E11.65 Type 2 diabetes mellitus with hyperglycemia; R89.1 Abnormal level of hormones in specimens from other organs, systems and tissues

== ENCOUNTER → 2024-06-08 | Outpatient (CLI) | payer MEDICARE, MEDICAID ==
[~2024-06-08] MED LIST changes: +GABA-1172 PO; -GABA-282 PO; +GLIP10TA15 PO; -GLIP10TA6 PO
== END ==
LOC: M RAD 10:24
PROVIDERS: ATTEND Physician Assistant
DX: R05.9 Cough, unspecified (principal)

== ENCOUNTER → 2024-07-28 | Outpatient (REF) | payer MEDICARE, MEDICAID ==
[2024-07-28 14:14] LABS: BASO # 0.1 10^3/uL (0.0-0.2); BASO % 0.8 % (0.0-1.0); EOS # 0.2 10^3/uL (0.0-0.5); EOS % 2.4 % (0.0-3.0); HEMATOCRIT 47.1 % (42.0-52.0); HEMOGLOBIN 15.2 g/dl (13.5-17.5); LYMPH # 2.3 10^3/uL (1.5-5.0); LYMPH % 25.1 % (24.0-44.0); MEAN CORPUSCULAR HEMOGLOBIN 26.7 pg (27.0-33.0); MEAN CORPUSCULAR HGB CONC 32.3 g/dl (32.0-36.5); MEAN CORPUSCULAR VOLUME 82.8 fl (80.0-96.0); MONO # 0.8 10^3/uL (0.0-0.8); MONO % 8.5 % (2.0-8.0); NEUTROPHILS # 5.8 10^3/uL (1.5-8.5); NEUTROPHILS % 62.7 % (36.0-66.0); PLATELET COUNT, AUTOMATED 273 10^3/uL (150-450); RED BLOOD COUNT 5.69 10^6/uL (4.30-6.10); WHITE BLOOD COUNT 9.2 10^3/uL (4.0-10.0)
[2024-07-28 14:15] LABS: ALBUMIN 3.7 G/DL (3.2-5.2); ALKALINE PHOSPHATASE 92 U/L (40-129); ALT/SGPT 21 U/L (7.0-40); AST/SGOT 14 U/L (<34); BILIRUBIN,TOTAL 0.9 MG/DL (0.3-1.2); BLOOD UREA NITROGEN 32 MG/DL (9-23); CALCIUM LEVEL 9.9 MG/DL (8.3-10.6); CARBON DIOXIDE LEVEL 23 MMOL/L (20-31); CHLORIDE LEVEL 107 MMOL/L (98-107); CHOLESTEROL LEVEL 116 MG/DL (<200); CREATININE FOR GFR 0.99 MG/DL (0.70-1.30); GLOMERULAR FILTRATION RATE > 60.0 (>49); GLUCOSE, FASTING 184 MG/DL (74-106); HDL CHOLESTEROL 36.2 MG/DL (>40); NON-HDL-C 79.8 MG/DL; POTASSIUM SERUM 5.2 MMOL/L (3.5-5.1); SODIUM LEVEL 140 MMOL/L (136-145); TOTAL PROTEIN 7.1 G/DL (5.7-8.2); TRIGLYCERIDES LEVEL 134 MG/DL (<150)
[2024-07-28 14:18] LABS: THYROID STIMULATING HORMONE 5.507 uIU/ML (0.55-4.78)
[2024-07-28 14:47] LABS: HEMOGLOBIN A1c 8.5 % (4.0-6.0)
== END ==
LOC: M LAB REF 13:12
PROVIDERS: ATTEND Nurse Practitioner Family
DX: E66.01 Morbid (severe) obesity due to excess calories (principal); Z79.899 Other long term (current) drug therapy

== ENCOUNTER → 2024-09-08 | Outpatient (CLI) | payer MEDICARE, MEDICAID ==
[~2024-09-08] MED LIST changes: +GLIP-318 PO; -GLIP5TAB20 PO; +PREG-35 PO; -PREG100CA PO; -PREG50CA PO; +PREG50CA87 PO
[2024-09-08 12:53] LABS: ALBUMIN 3.5 G/DL (3.2-5.2); ALKALINE PHOSPHATASE 78 U/L (40-129); ALT/SGPT 19 U/L (7.0-40); AST/SGOT 15 U/L (<34); BILIRUBIN,TOTAL 0.7 MG/DL (0.3-1.2); BLOOD UREA NITROGEN 23 MG/DL (9-23); CALCIUM LEVEL 9.3 MG/DL (8.3-10.6); CARBON DIOXIDE LEVEL 26 MMOL/L (20-31); CHLORIDE LEVEL 101 MMOL/L (98-107); CREATININE FOR GFR 0.89 MG/DL (0.70-1.30); GLOMERULAR FILTRATION RATE > 90.0 (>49); GLUCOSE, FASTING 196 MG/DL (74-106); POTASSIUM SERUM 4.6 MMOL/L (3.5-5.1); SODIUM LEVEL 135 MMOL/L (136-145)
== END ==
LOC: M LAB 11:43
PROVIDERS: ATTEND Nurse Practitioner Family
DX: E11.65 Type 2 diabetes mellitus with hyperglycemia (principal)

== ENCOUNTER → 2025-02-21 | Outpatient (CLI) | payer MEDICARE, MEDICAID | LOC: M LAB 10:04 | PROVIDERS: ATTEND Nurse Practitioner Family | DX: Z12.5 Encounter for screening for malignant neoplasm of prostate (principal) | CPT/HCPCS: 36415; G0103 ==

== ENCOUNTER → 2025-02-28 | Outpatient (CLI) | payer MEDICARE, MEDICAID | LOC: M RAD 07:06 | PROVIDERS: ATTEND Physician Assistant | DX: D48.5 Neoplasm of uncertain behavior of skin (principal) ==

== ENCOUNTER → 2025-04-29 | Outpatient (CLI) | payer MEDICARE, MEDICAID | LOC: M PLARAD 09:33 | PROVIDERS: ATTEND Physician Assistant | DX: M54.50 Low back pain, unspecified (principal); M47.812 Spondylosis without myelopathy or radiculopathy, cervical region ==